=== PATIENT | female | born 1985 | race Caucasian/White ===

== ENCOUNTER 2018-02-19 01:05 | Inpatient (IN) ==
--- OUTSIDE RECORDS SUMMARY | 2018-02-19 01:14 | External Medical Summary | Continuity of Care Document ---
:1985 Author Organization [facility] Address [address] [place], [place] [address] Phone Support Name Relationship Address Phone Neftaly Jimenez spouse [address] [facility] [phone] [place] [address] Allergies, Adverse Reactions, Alerts Substance Reaction Severity Status No Known Drug Allergies Unknown Active Medications Medication Instructions Dosage Effective Dates Status Comments (start - stop) Fioricet 50 mg-300 take 1 - 2 capsule Not Available - Active mg-40 mg capsule by oral route every 4 hours as needed not to exceed 6 capsules per 24hrs TUMS (unknown - Active strength) VITAMINS take 1 tablet by - Active (unknown strength) oral route every day Tylenol 325 mg take 1 tablet by - Active tablet oral route every 4 hours as needed Problems Condition Effective Dates (start - stop) Clinical Status 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) w/o abn findings Previous Low Transverse - 24 weeks gestation of - Supervision of other high risk - pregnancies, first trimester 12 weeks gestation of - Irregular Menses Supervision of other high risk - pregnancies, first trimester 13 weeks gestation of - Supervision of other high risk - pregnancies, first trimester Previous Low Transverse - Encntr screen for infections w sexl - mode of transmiss Encounter for screening for oth - infec/parastc diseases Encounter for screening of - mother 8 weeks gestation of - Supervision of other high risk - pregnancies, second trimester Previous Low Transverse - 19 weeks gestation of - Supervision of other high risk - pregnancies, second trimester Spotting complicating , - second trimester 15 weeks gestation of - Vomiting of , unspecified - related exhaustion and - fatigue, second trimester 19 weeks gestation of - Pap Smear Screening, Cervix - Body Mass Index 35.0-35.9, Adult - Active Menorrhagia Active Procedures Procedure Date OB Visit No Charge Results Test Name Date and Time Measure Units Reference Range Abnormal Flag Comments Unknown Advance Directives Directive Yes / No Effective Date File Name Unknown Encounters Encounter Practice Location Reason(s) Diagnoses Date Provider Care Team Description For Visit Members Tyler Nazario Previous Low Mar-0 Julian Referring In Womens Transverse [place]. 700 Provider: Jeri KNOX, [id number] weeks 8 Medical [facility] Box gestation of Hunt Julian Suggs, 15[address], Dr [place] 700 [place], [facility], Medical [facility] [id number], [place], [facility] 120, [place] [id number] Aravind, tel: , [place]. [place], tel: [phone]. [id number] tel:[phone] Tyler Nazario Vomiting of Feb-0 Julian Referring In Womens , [place]. 700 Provider: Jeri KNOX, unspecifiedPregna 8 Medical [facility] Box ncy related Center Julian R, 1522, exhaustion and Dr [place] Dima Hart, fatigue, second 120, Medical [place], [id number] weeks [facility] [id number], gestation of [place], [facility] 120, [place] [id number] Aravind, tel: , . [place], tel: [phone]. [id number] tel:[phone] Tyler Nazario Supervision of Feb-0 Julian Referring In Womens Ultrasound other high risk 7- [place]. 700 Provider: Jeri KNOX, pregnancies, 8 Medical [place] PO Box second Center Julian R, 1522, trimesterPrevious Dr, [place] Dima Hrat, Low Transverse 120, Medical [place], [id number] [address] [id number], gestation of [place], [place] 120, [place] [id number] Aravind, tel: , [place]. [place], tel: [phone]. [id number] tel:[phone] Tyler Nazario Supervision of Sumit-1 Julian Referring In Womens other high risk 0-201 [place]. 700 Provider: Health PA, pregnancies, 8 Medical [place] PO Box second Center Julian R, 1522, trimesterSpotting Dr [place] Dima Hart, complicating 120, Medical [place], , second [facility] [id number], weeks [place], [place] 120, [place] gestation of [id number] Aravind, tel: , [place]. [place], tel: [phone]. [id number] tel:[phone] Tyler Nazario Supervision of Dec-2 Julian Referring In Womens other high risk 6-201 [place]. 700 Provider: Health PA, pregnancies, 7 Medical [place] PO Box first [id number] Center Julian R, 1522, weeks gestation [place] Enrique, of 120, Medical [facility] [id number], [place], [place] 120, [place] [id number] Aravind, tel: , [place]. [place], tel: [phone]. [id number] tel:[phone] Tyler Nazario Supervision of Dec-1 Julian Referring In Womens other high risk 4-201 [place]. 700 Provider: Health PA, pregnancies, 7 Medical [place] PO Box first [email or web address] Center Julian R, 1522, weeks gestation [place] Enrique, of 120, Medical [facility] [id number], [place], [place] 120, [place] [id number] Aravind, tel: , [place]. [place], tel: [phone]. [id number] tel:[phone] Tyler Nazario Supervision of Nov-1 Julian Referring In Womens other high risk 6-201 [place]. 700 Provider: Health PA, pregnancies, 7 Medical [place] PO Box first Center Julian R, 1522, trimesterPrevious [place] Enrique, Low Transverse 120, Medical [place], C-[facility]Encntr [facility] [id number], screen for [place], [facility] 120, [place] infections w sexl [id number] Aravind, tel: mode of , [place]. [place], transmissEncounte tel: [phone]. r for screening [phone] tel: for oth [phone] infec/parastc diseasesEncounter for screening of mother8 weeks gestation of Tyler Nazario Irregular Menses Julian In Womens [place]. 700 Health [place], 6 Medical PO Box Center 1522, [place] Enrique, [facility], Aravind CASTLE [id number], [place], [id number] tel: , [place]. 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 [facility] Provider: Health L[place], (routine) w/o abn 6 [facility] PO Box findingsPap Smear Center Julian R, 1522, Screening, Cervix , [facility] Dima Hart, [facility], Medical [facility] [id number], [place], [facility] 120, [place] [id number] Aravind, tel: , [place]. [place], tel: [phone]. [id number] tel:[phone] Tyler Nazario Julian In Womens [place]. 700 Jeri KNOX, 1 Medical PO Box Center 1522, [place] Enrique, [facility], Aravind CAST[place] [id number], [place], [place] [id number] tel: , [place]. tel: [phone] Family History Family Member Diagnosis Age At Onset Mother Thyroid Disorder Paternal Grandfather Cardiovascular Disease Maternal Grandmother Thyroid Disorder No family history of Pulmonary Embolism Paternal Grandfather Diabetes mellitus Paternal Grandmother Diabetes mellitus No family history of Venous Thrombosis Immunizations Vaccine Date Status Comments Influenza, injectable, completed Source: Source Unspecified quadrivalent, preservative free, 3 yrs or older Payers Payer name Insurance type Covered alliance party ID Authorization(s) BCBS Out Of State [id number] BCBS [facility] [id number] Social History Type Description Quantity Date Captured Alcohol Use Details No Caffeine Use Details Unknown Tobacco Use Status Unknown Smoking Status Never smoker Vital Signs Date / Height Weight BMI Pulse Blood Temperature Respiratory Body Head BMI Time: Rate Pressure Rate Surface Circumference percentile Area 232.70 44.6 113/70 2018 lbs 9 mm[Hg] 2:07 kg/m PM eter (2) Chief Complaint And Reason For Visit Unknown Chief Complaint And Reason For Visit Reason For Referral Reason For Referral Unknown Plan Of Care Date Type Action Status Appointment Guerline Jimenez DMS BOOKED Appointment Guerline Jimenez - [facility] - RC/S, PPTL BOOKED Future Order: Radiology Order Complete OB Ultrasound > 14 Ordered Weeks ([id number]) Date Type Problem Goal Intervention Status Start Date Unknown. History Of Present Illness Encounter Date Complaint History Of Present Illness This patient has no known history of present illness Functional Status Encounter Date Functional Assessment Cognitive Assessment Unknown Medications Administered Medication Instructions Dosage Effective Dates (start - stop) Status Comments Drug Treatment Unknown Instructions Date Instruction Additional Information [facility]og docs new ob handbook HIV and other routine tests risk factors identified by history anticipated course of care nutrition and weight gain counseling, special diet toxoplasmosis precautions (cats / raw meat) sexual activity exercise indications for ultrasound influenza vaccine environmental / work hazards travel use of any medications (including supplements, vitamins, herbs, OTC drugs) domestic violence seat belt use childbirth classes / hospital facilities hospital registration genetic testing
--- OUTSIDE RECORDS SUMMARY | 2018-02-19 01:14 | External Medical Summary | Continuity of Care Document ---
:1985 Author Organization [facility] Address [address] [place], [place] [address] Phone Support Name Relationship Address Phone Neftaly Jimenez spouse [address] 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 findings Supervision of other high risk - pregnancies, first trimester 12 weeks gestation of - Previous Low Transverse - 24 weeks gestation of - Irregular Menses Supervision [...] second trimester 15 weeks gestation of - Supervision of other high risk - pregnancies, third trimester Previous Low Transverse - Frequency of micturition - 28 weeks gestation of - Vomiting of , unspecified - related exhaustion and - fatigue, second trimester 19 weeks gestation of - Previous Low Transverse - 30 weeks gestation of - Pap Smear Screening, Cervix - Body Mass Index 35.0-35.9, Adult - Active Menorrhagia Active Procedures Procedure Date Unknown Results Test Name Date and Time Measure Units Reference Range Abnormal Flag Comments Unknown Advance Directives Directive Yes / No Effective Date File Name Unknown Encounters Encounter Practice Location Reason(s) Diagnoses Date Provider Care Team Description For Visit Members Tyler Nazario Previous Low Apr-1 Julian Referring In Womens Transverse 7-201 [place]. 700 Provider: Jeri KNOX, [id number] weeks 8 [facility] gestation of [facility] R, 152, [place] Enrique, [facility], Medical [facility] [id number], [place], [facility] 120, [place] [id number] Aravind, tel: , [place]. [place], tel: [phone]. [id number] tel:[phone] Tyler Nazario Supervision of Apr-0 Julian Referring In Womens other high risk 3-201 [place]. 700 Provider: Health LISETTE, pregnancies, 8 [facility] third [facility] R, 1522, trimesterPrevious [place] Enrique, Low Transverse 120, Medical [place], C-SectionFrequenc [facility] [id number], y of [place], [facility] 120, [place] [id number] Aravind, tel:2 weeks gestation , [place]. [place], of tel: [phone]. [id number] tel:[phone] Tyler Nazario Apr-0 Julian In Womens 2-201 [place]. 700 Health PA, 8 Medical PO Box Center 1522, [place] Enriqueta, 120, [place], Nazario, [id number], [place], [place] [id number] tel: , [place]. tel: [phone] Tyler Nazario Previous Low Mar-0 Julian Referring In Womens Transverse 7-201 [place]. 700 Provider: Health PA, [id number] weeks 8 Medical [facility] gestation of Center Julian R, 1522, , [place] Dima [place], 120, Medical [place], Nazario, [place] [id number], [place], [place] 120, [place] [id number] Aravind, tel: , [place]. [place], tel: [phone]. [id number] tel:[phone] Tyler Nazario Vomiting of Feb-0 Julian Referring In Womens , 7-201 [place]. 700 Provider: Health LISETTE, unspecifiedPregna 8 Medical [facility] Box ncy related Center Julian R, 1522, exhaustion and , [place] 700 [place], fatigue, second 120, Medical [place], [id number] [id number], gestation of [place], [facility] 120, [place] [id number] Aravind, tel: , [place]. [place] tel: [phone]. [id number] tel:[phone] Tyler Nazario Supervision of Feb-0 Julian Referring In Womens Ultrasound other high risk 7-201 [place]. 700 Provider: Health PA, pregnancies, 8 Medical [facility] second Center Julian R, 1522, trimesterPrevious , [place] 700 [place], Low Transverse 120, Medical [place], [id number] [id number], gestation of [place], [facility] 120, [place] [id number] Aravind, tel: , [place]. [place] tel: [phone]. [id number] tel:[phone] Tyler Nazario Supervision of Sumit-1 Julian Referring In Womens other high risk 0-201 [place]. 700 Provider: Health PA, pregnancies, 8 Medical [place] PO Box second Center Julian R, 1522, trimesterSpotting Dr [place] Dmia Estrada[place], complicating 120, Medical [place], , second [facility] [id number], [id number] weeks [place], [facility] 120, [place] gestation of [id number] Aravind, tel: , [place]. [place], tel: [phone]. [id number] tel:[phone] Tyler Nazario Supervision of Dec-2 Julian Referring In Womens other high risk 6-201 [place]. 700 Provider: Health PA, pregnancies, 7 Medical [place] PO Box first Center Julian R, 1522, weeks gestation [place] Enrique, of 120, Medical [facility] [id number], [place], [place] 120, [place] [id number] Aravind, tel: , [place]. [place], tel: [phone]. [id number] tel:[phone] Tyler Nazario Supervision of Dec-1 Julian Referring In Womens other high risk 4-201 [place]. 700 Provider: Health PA, pregnancies, 7 Medical [place] PO Box first [id number] Center Julian R, 1522, weeks gestation [place] Enrique, of 120, Medical [facility] [id number], [place], [facility] 120, [place] [id number] Aravind, tel: , [place]. [place], tel: [phone]. [id number] tel:[phone] Tyler Nazario Supervision of Nov- Julian Referring In Womens other high risk 6-201 [place]. 700 Provider: Health PA, pregnancies, 7 Medical [facility] Box first Center Julian R, 1522, trimesterPrevious [place] Enrique [place], Low Transverse 120, Medical [place], C-SectionEncntr Aravind [place] [id number], screen for [place], [place] 120, [place] infections w sexl [id number] Aravind, tel: mode of , [place]. [place] transmissEncounte tel: [phone]. r for screening [phone] tel: for oth [phone] infec/parastc diseasesEncounter for screening of mother8 weeks gestation of Tyler Nazario Irregular Menses Julian In Womens [place]. 700 Health LISETTE, 6 Medical PO Box Center 1522, [place] Enrique, [facility], [place], Aravind, [id number], [place], [id number] tel: , [place]. 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 700 Provider: Jeri KNOX, (routine) w/o abn 6 [facility] PO Box findingsPap Smear Center Julian R, 1522, Screening, Cervix , [place] [facility] [place], [facility], [facility], Aravind, [place] [id number], [place], [place] [address], [id number] Aravind, tel: , . [place], tel: [phone]. [id number] tel:[phone] Tyler Nazario Julian In Womens [place]. 700 Health L[place], 1 Medical PO Box Center 1522, [place] Enrique, [facility], [place], Aravind, [id number], [place], [place] [id number] tel: , [place]. tel: [phone] Family History Family Member Diagnosis Age At Onset Mother Thyroid Disorder Paternal Grandfather Cardiovascular Disease Maternal Grandmother Thyroid Disorder No family history of Pulmonary Embolism Paternal Grandfather Diabetes mellitus Paternal Grandmother Diabetes mellitus No family history of Venous Thrombosis Immunizations Vaccine Date Status Comments Influenza, injectable, completed Source: Source Unspecified quadrivalent, preservative free, 3 yrs or older Payers Payer name Insurance type Covered green party ID Authorization(s) BC Out Of State [id number] [facility] [id number] Social History Type Description Quantity Date Captured Unknown Vital Signs Date / Height Weight BMI Pulse Blood Temperature Respiratory Body Head BMI Time: Rate Pressure Rate Surface Circumference percentile Area Unknown Chief Complaint And Reason For Visit Unknown Chief Complaint And Reason For Visit Reason For Referral Reason For Referral Unknown Plan Of Care Date Type Action Status Appointment Guerline Jimenez BOOKED Appointment Guerline Jimenez [place] [facility] [place]PT[place] Future Order: Radiology Order Complete OB Ultrasound > 14 Ordered Weeks ([id number]) Date Type Problem Goal Intervention Status Start [...]
--- OUTSIDE RECORDS SUMMARY | 2018-02-19 01:14 | External Medical Summary | Continuity of Care Document ---
:1985 Author Organization [facility] Address [address] [place], [place] [address] Phone Support Name Relationship Address Phone Neftaly Jimenez spouse [address] [facility] [phone] [place] [address] Allergies, Adverse Reactions, Alerts Substance Reaction Severity Status No Known Drug Allergies Unknown Active Medications Medication Instructions Dosage Effective Dates Status Comments (start - stop) Fioricet 50 take 1 - 2 capsule Not Available - Active mg-300 mg-40 mg by oral route capsule every 4 hours as needed not to exceed 6 capsules per 24hrs TUMS (unknown - Active strength) VITAMINS take 1 tablet by - Active (unknown oral route every strength) day Tylenol 325 mg take 1 tablet by - Active tablet oral route every 4 hours as needed Keflex 500 mg take 1 capsule by 500 MG - No Longer capsule ORAL route 4 times Active every day Problems Condition Effective Dates (start - stop) Clinical Status 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 700 Provider: Jeri KNOX, 8 [facility] Julian Suggs, 1522, Dr [place] Dima Hart, 120, Medical [facility] [id number], [place], [facility] 120, [id number] Aravind, tel: , [facility], tel: [phone]. [id number] tel:[phone] Tyler Nazario Previous Low Mar-0 Julian Referring In Womens Transverse - [place]. 700 Provider: Jeri KNOX, [id number] weeks 8 [facility] gestation of Center Julian Suggs, 1522, Dr [place] Dima Hart, 120, Medical [facility] [id number], [place], [facility] 120, [id number] Aravind, tel: , [facility], tel: [phone]. [id number] tel:[phone] Tyler Nazario Vomiting of Feb-0 Julian Referring In Womens , 7- [place]. 700 Provider: Jrei KNOX, unspecifiedPregna 8 [facility] ncy related Center Julian R, 1522, exhaustion and Dr, [place] Dima Hart, fatigue, second 120, Medical [place], [id number] weeks [facility] [id number], gestation of [place], [place] 120, [place] [id number] Aravind, tel: , [place]. [place], tel: [phone]. [id number] tel:[phone] Tyler Nazario Supervision of Feb-0 Julian Referring In Womens Ultrasound other high risk 7-201 [place]. 700 Provider: Health PA, pregnancies, 8 Medical [place] PO Box second Center Julian R, 1522, trimesterPrevious , [place] Dima Hart, Low Transverse 120, Medical [place], C-[id number] weeks [facility] [id number], gestation of [place], [place] 120, [place] [id number] Aravind, tel: , [place]. [place], tel: [phone]. [id number] tel:[phone] Tyler Nazario Supervision of Sumit- Julian Referring In Womens other high risk 0-201 [place]. 700 Provider: Health PA, pregnancies, 8 Medical [place] PO Box second Center Julian R, 1522, trimesterSpotting , [place] Dima Hart, complicating 120, Medical [place], , second [facility] [id number], [id number] weeks [place], [place] 120, [place] gestation of [id number] Nazario, tel: , [place]. [place], tel: [phone]. [id number] tel:[phone] Tyler Nazario Supervision of Dec-2 Julian Referring In Womens other high risk 6-201 [place]. 700 Provider: Health PA, pregnancies, 7 Medical [place] PO Box first Center Julian R, 1522, weeks gestation [place] Enrique, of 120, Medical [place], [facility] [id number], [place], [place] 120, [place] [id number] Aravind, tel: , [place]. [place], tel: [phone]. [id number] tel:[phone] Tyler Nazario Supervision of Dec-1 Julian Referring In Womens other high risk 4-201 [place]. 700 Provider: Health PA, pregnancies, 7 Medical [place] PO Box first [email or web address] Center Julian R, 1522, weeks gestation [place] Enrique, of 120, Medical [facility] [id number], [place], [place] 120, [place] [id number] Aravind, tel: , [place]. [place], tel:[phone]. [id number] tel:[phone] Tyler Nazario Supervision of Julian Referring In Womens other high risk - [place]. 700 Provider: Jeri KNOX, pregnancies, 7 [facility] PO Box first Center Julian R, 1522, trimesterPrevious , [place] Hart, Low Transverse 120, Medical [place], [facility]Encntr [facility] , screen for [place], [place] 120, [place] infections w sexl [id number] Aravind, tel: mode of , [place]. [place] transmissEncounte tel: [phone]. r for screening [phone] tel: for oth [phone] infec/parastc diseasesEncounter for screening of mother8 weeks gestation of Tyler Nazario Irregular Menses Julian In Womens - [place]. 700 eJri KNOX, 6 Medical PO Box Center 1522, [place] Enrique, 120, Aravind [place]ST[place] [id number], [place], [id number] tel: , [place]. tel: [phone] Tyler Nazario Encntr for ob/gyn physician Julian Referring In Womens exam (general) [place]. 700 Provider: Jeri KNOX, (routine) w/o abn 6 [facility] PO Box findingsPap Smear Center Julian R, 1522, Screening, Cervix [place] Enrique, 120, Medical [facility] [id number], [place], [facility] 120, [place] [id number] Aravind, tel: , [place]. [place], tel: [phone]. [id number] tel:[phone] Tyler Nazario Julian In Womens -201 [place]. 700 Health LISETTE, 1 Medical PO Box Center 1522, [place] Enrique, 120, Aravind [place] [id number], [place], [place] [id number] tel:[phone] , [place]. [id number] tel: [phone] Family History Family Member Diagnosis Age At [...] Insurance type Covered green party ID Authorization(s) [facility] Out Of State [id number] [facility] [id number] Social History Type Description Quantity Date Captured [...] Complete OB Ultrasound > 14 Ordered Weeks ([id number]) Date Type Problem Goal Intervention Status Start [...]
--- OUTSIDE RECORDS SUMMARY | 2018-02-19 01:14 | External Medical Summary | Continuity of Care Document ---
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) w/o 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 findings Supervision of other high risk - pregnancies, first trimester Previous Low Transverse - Encntr screen for infections w sexl - mode of transmiss Encounter for screening for oth - infec/parastc diseases Encounter for screening of - mother 8 weeks gestation of - Irregular Menses Pap Smear Screening, Cervix - Body Mass Index 35.0-35.9, Adult - Active Menorrhagia Active Procedures Procedure Date Initial OB Visit No Charge - 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 Infct antign, chlamydia trac, ampl Urine Culture OB Panel With An HIV Neisseria Gonorrhoeae, Amplification Venpnctr fngr/heel/ear stick routne Results Test Name Date and Time Measure Units Reference Range Abnormal Flag Comments Panel Description: OBSTETRIC PANEL WHITE BLOOD CELL 6.9 Thousand/uL 3.8-10.8 N COUNT 09:26:00 RED BLOOD CELL 4.38 Million/uL 3.80-5.10 N COUNT 09:26:00 HEMOGLOBIN 13.8 g/dL 11.7-15.5 N 09:26:00 HEMATOCRIT 40.6 % 35.0-45.0 N 09:26:00 MCV 92.7 fL 80.0-100.0 N 09:26:00 MCH 31.5 pg 27.0-33.0 N 09:26:00 MCHC 34.0 g/dL 32.0-36.0 N 09:26:00 RDW 12.6 % 11.0-15.0 N 09:26:00 PLATELET COUNT 288 Thousand/uL 140-400 N 09:26:00 MPV 11.9 fL 7.5-12.5 N 09:26:00 ABSOLUTE 4871 cells/uL 4798-6680 N NEUTROPHILS 09:26:00 ABSOLUTE 1553 cells/uL 850-3900 N LYMPHOCYTES 09:26:00 ABSOLUTE 428 cells/uL 200-950 N MONOCYTES 09:26:00 ABSOLUTE 41 cells/uL 15-500 N EOSINOPHILS 09:26:00 ABSOLUTE 7 cells/uL 0-200 N BASOPHILS 09:26:00 NEUTROPHILS 70.6 % N 09:26:00 LYMPHOCYTES 22.5 % N 09:26:00 MONOCYTES 6.2 % N 09:26:00 EOSINOPHILS 0.6 % N 09:26:00 BASOPHILS 0.1 % N 09:26:00 ANTIBODY SCREEN, NO ANTIBODIES N RBC W/REFL ID, 09:26:00 DETECTED Reference range TITER AND AG No antibodies detected This assay is a screening test for the detection of red blood cell antibodies. The test is not to be used for pretransfusion screening or for the medical management of an alloimmunized . ABO GROUP O 09:26:00 RH TYPE RH(D) 09:26:00 POSITIVE RPR (DX) W/REFL NON-REACTIVE NON-REACTIV N TITER AND 09:26:00 E CONFIRMATORY TESTING HEPATITIS B NON-REACTIVE NON-REACTIV N SURFACE ANTIGEN 09:26:00 E RUBELLA ANTIBODY 5.95 index N Index (IGG) 09:26:00 Interpretation ----- <0.90 Not consistent with Immunity 0.90-0.99 Equivocal > or=1.00 Consistent with Immunity The presence of rubella IgG antibody suggests immunization or past or current infection withrubella virus[place] [address]Telbxld r: ODALYS PENNY DO,MPH Panel Description: HIV 1/2 ANTIGEN/ANTIBODY,FOURTH GENERATION W/RFL HIV NON-REACTIVE NON-REACTIVE N HIV-1 antigen and HIV-1/HIV- 2 antibodies were AG/AB, 09:26:00 notdetected. There is no laboratory evidence of 4TH GEN HIVinfection. PLEASE NOTE: This information has been disclosed toyou from records whose confidentiality may beprotected by state law. If your state requires suchprotection, then the state law prohibits you frommaking any further disclosure of the informationwithout the specific written consent of the personto whom it pertains, or as otherwise permitted by law.A general authorization for the release of medical orother information is NOT sufficient for this purpose. For additional information please refer tohttp://education.Follicum/faq/JTZ059(This link is being provided for informational/educational purposes only.) The performance of this assay has not been clinicallyvalidated in patients less than 2 years old. REPORT COMMENT:FASTING:[place] [address]Bteipzrb: ODALYS PENNY DO,MPH Panel Description: Bacteria identified in Urine by Culture CULTURE, URINE, SEE NOTE CULTURE, URINE, ROUTINE MICRO ROUTINE 09:27:00 NUMBER: [id number] TEST STATUS: FINAL SPECIMEN SOURCE: URINE SPECIMEN QUALITY: ADEQUATE RESULT: No GrowthREPORT COMMENT:RFASTING:[place] [address]Cedpafgw: ODALYS PENNY DO,MPH Panel Description: CHLAMYDIA/N. GONORRHOEAE RNA, TMA CHLAMYDIA NOT DETECTED NOT DETECTED N TRACHOMATIS RNA, 09:27:00 TMA NEISSERIA NOT DETECTED NOT DETECTED N GONORRHOEAE RNA, 09:27:00 TMA [id number] SEE NOTE This test was 09:27:00 performed using the APTIMA COMBO2 Assay([employer] The analytical performance characteristics of this assay, when used to test SurePath specimens havebeen determined by [employer]. REPORT COMMENT:FASTING:UNKNO WNTest performed at [facility] [address] [place] [address]Kpvnxswq: ODALYS PENNY DO,MPH Panel Description: Pap Smear With HPV Reflex If ASCUS Document Pap Smear 08:45:00 See scanned report Advance Directives Directive Yes / No Effective Date File Name Unknown Encounters Encounter Practice Location Reason(s) Diagnoses Date Provider Care Team Description For Visit Members Tyler Nazario Supervision of Julian Referring In Womens other high risk [place]. [facility] Provider: Jeri KNOX, pregnancies, first 7 Medical [place] PO Box trimesterPrevious Center Julian Suggs, 1522, Low Transverse [place] Enrique, C-SectionEncntr [facility], [facility], screen for [address] [id number], infections w sexl [place], [facility] 120, [place] mode of [id number] Aravind, tel: [facility] , . [place], for screening for tel: [phone]. [facility] infec/parastc [id number] tel: diseasesEncounter [phone] for screening of mother8 weeks gestation of Associates Aravind Irregular Menses Julian In Womens [place] [address] Jeri KNOX, 6 Medical PO Box Center [address], [place] Enrique, [facility], [place], Aravind, [id number], [place], [place] [id number] tel: , [place]. tel: [phone] Tyler Nazario Encserar for terrazzo supervisor exam Julian Referring In Womens (general) (routine) [place]. 700 Provider: Health [place], w/o abn findingsPap 6 [facility] PO Box Smear Screening, Center Julian R, 1522, Cervix , [place], 120, [facility] [id number], [place], [place] [address], [place] [id number] Aravind, tel: , [place]. [place], tel: [phone]. [phone] tel:[phone] Tyler Nazario Julian In Womens [place]. 700 Health [place], 1 Medical PO Box Center 1522, , [place] Hart, 120, Aravind [place], [id number], [place], [id number] tel: , [place]. tel: [phone] Family History Family Member Diagnosis Age At Onset Mother Thyroid Disorder Paternal Grandfather Cardiovascular Disease Maternal Grandmother Thyroid Disorder No family history of Pulmonary Embolism Paternal Grandfather Diabetes mellitus Paternal Grandmother Diabetes mellitus No family history of Venous Thrombosis Immunizations Vaccine Date Status Comments Unknown Payers Payer name Insurance type Covered green party ID Authorization(s) [facility] [id number] Social History Type Description Quantity Date Captured Alcohol Use Details No Caffeine Use Details soda 8 oz per day Tobacco Use Status Never smoked tobacco Smoking Status Never smoker Vital Signs Date / Height Weight BMI Pulse Blood Temperature Respiratory Body Head BMI Time: Rate Pressure Rate Surface Circumference percentile Area 229.50 44.0 / lbs 8 mm[Hg] 9:21 kg/m AM eter (2) Chief Complaint And Reason For Visit Unknown Chief Complaint And Reason For Visit Reason For Referral Reason For Referral Unknown Plan Of Care Date Type Action Status Appointment Guerline Jimenez BOOKED Date Type Problem Goal Intervention Status Start [...]
--- OUTSIDE RECORDS SUMMARY | 2018-02-19 01:15 | External Medical Summary | Continuity of Care Document ---
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) w/o abn findings Supervision of other high risk - pregnancies, first trimester 13 weeks gestation of - Supervision of other high risk - pregnancies, first trimester 12 weeks gestation of - Supervision of other high risk - pregnancies, second trimester Spotting complicating , - second trimester 15 weeks gestation of - Irregular Menses Supervision of other high risk - pregnancies, first trimester Previous Low Transverse - Encntr screen for infections w sexl - mode of transmiss Encounter for screening for oth - infec/parastc diseases Encounter for screening of - mother 8 weeks gestation of - Pap Smear Screening, Cervix - Body Mass Index 35.0-35.9, Adult - Active Menorrhagia Active Procedures Procedure Date OB Visit No Charge OB Office/outpt visit, kira Salmon Results Test Name Date and Time Measure Units Reference Range Abnormal Flag Comments Unknown Advance Directives Directive Yes / No Effective Date File Name Unknown Encounters Encounter Practice Location Reason(s) Diagnoses Date Provider Care Team Description For Visit Members Tyler Nazario Supervision of Julian Referring In Womens other high risk 0-201 [place]. 700 Provider: Health PA, pregnancies, second 8 Medical [place] PO Box trimesterSpotting Center Julian Suggs, 1522, complicating [place] Enrique, , second 120, Medical [place], [id number] [facility] [id number], gestation of [place], [place] 120, [place] [id number] Aravind, tel: , [place]. [place], tel: [phone]. [phone] tel:[phone] OB Tyler Nazraio Supervision of Julian Referring Office/outpt In Womens other high risk 6-201 [place]. 700 Provider: visit, Est, Health PA, pregnancies, first 7 Medical [place] low PO Box [id number] weeks [place] Julian Suggs, 1522, gestation of [place] Enrique, 120, Medical [facility] [id number], [place], [place] 120, [place] [id number] Aravind, tel: , [place]. [place], tel: [phone]. [id number] tel:[phone] Tyler Nazario Supervision of Julian Referring In Womens other high risk 4-201 [place]. 700 Provider: Health PA, pregnancies, first 7 Medical [place] PO Box [id number] weeks [place] Julian Suggs, 1522, gestation of [place] Enrique, 120, Medical [facility] [id number], [place], [place] 120, [place] [id number] Aravind, tel: , . [place], tel: [phone]. [id number] tel:[phone] Tyler Nazario Supervision of Julian Referring In Womens other high risk [place]. 700 Provider: Health LISETTE, pregnancies, first 7 [facility] PO Box trimesterPrevious Center Julian Suggs, 1522, Low Transverse , [place] D[place], C-SectionEncntr 120, [facility], screen for Nazario, [place] [id number], infections w sexl [place], [facility] 120, [place] mode of [id number] Aravind, tel: transmissEncgreater el monte community hospitaler , . [place], for screening for tel: [phone]. ot infec/parastc [id number] tel: diseasesEncounter [phone] for screening of mother8 weeks gestation of Tyler Nazario Irregular Menses Julian In Womens [place]. 700 Jeri KNOX, 6 Medical PO Box Center [place], [place] Enrique, [facility], [place] [id number], [place], [place] [id number] tel: , [place]. tel: [phone] Tyler Nazario Encdaniel for hospice registered nurse exam Julian Referring In Womens (general) (routine) [place]. 700 Provider: Health LISETTE, w/o abn findingsPap 6 [facility] PO Box Smear Screening, Center Julian Suggs 1522, Cervix , [place] Dima [place], [facility], [facility] [id number], [place], [place] [address], [place] [id number] Aravind, tel: , . [place], tel: [phone]. [phone] tel:[phone] Tyler Nazario Julian In Womens [place]. 700 Health [place], 1 Medical PO Box Center [place], [place] Enrique, [facility], [place]Aravind [id number], [place], [place] [id number] tel: , [place]. tel: [phone] Family History Family Member Diagnosis Age At Onset Mother Thyroid Disorder Paternal Grandfather Cardiovascular Disease Maternal Grandmother Thyroid Disorder No family history of Pulmonary Embolism Paternal Grandfather Diabetes mellitus Paternal Grandmother Diabetes mellitus No family history of Venous Thrombosis Immunizations Vaccine Date Status Comments Influenza, injectable, completed Source: Source Unspecified quadrivalent, preservative free, 3 yrs or older Payers Payer name Insurance type Covered libertarian ID Authorization(s) [employer] [facility] [id number] BCBS Out Of State [id number] Social History Type Description Quantity Date Captured [...] Appointment Guerline Jimenez BOOKED Appointment Guerline Jimenez BOOKED Date Type Problem [...]
--- OUTSIDE RECORDS SUMMARY | 2018-02-19 01:15 | External Medical Summary | Continuity of Care Document ---
:1985 Author Organization [facility] Address [address] [place], [place] [phone] Phone Support Name Relationship Address Phone Neftaly Jimenez spouse [address] [facility] [phone] [place] [address] Allergies, Adverse Reactions, Alerts Substance Reaction Severity Status No Known Drug Allergies Unknown Active Medications Medication Instructions Dosage Effective Dates Status Comments (start - stop) TUMS (unknown - Active strength) VITAMINS take 1 tablet by oral - Active (unknown strength) route every day Tylenol 325 mg tablet take 1 tablet by oral - Active route every 4 hours as needed Problems Condition Effective Dates (start - stop) Clinical Status 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 700 Provider: Health PA, pregnancies, first 7 Medical [place] PO Box [id number] weeks Center Julian Suggs, 1522, gestation of [place] Enrique, 120, Medical [place], Aravind, [place] [id number], [place], [facility] 120, [place] [id number] Aravind, tel: , [place]. [place], tel: [phone]. [phone] tel:[phone] Tyler Nazario Julian In Womens [place]. 700 Health [place], 7 Medical PO Box Center 1522, [place] Enrique, 120, [place], Aravn[place], [id number], [place], [place] [id number] tel: , [place]. tel: [phone] Tyler Nazario Supervision of Julian Referring In Womens other high risk [place]. [place] Provider: Jeri KNOX, pregnancies, first 7 Medical [place] PO Box trimesterPrevious Center Julian R, 1522, Low Transverse [place] Enrique, C-SectionEncntr 120, [facility], screen for Aravind [place] [id number], infections w sexl [place], [place] 120, [place] mode of [id number] Aravind, tel: transmissEncounter , . [place], for screening for tel: [phone]. [facility] infec/parastc [id number] tel: diseasesEncounter [phone] for screening of mother8 weeks gestation of Associates Aravind Irregular Menses Julian In Womens [place]. 700 Jeri KNOX, 6 Medical PO Box Center 1522, [place] Enrique, 120, [place], Aravind, [id number], [place], [place] [id number] tel: , [place]. tel: [phone] Tyler Nazario Encntr for rn gyn exam Julian Referring In Womens (general) (routine) [place]. [place] Provider: Jeri KNOX, w/o abn findingsPap 6 [facility] PO Box Smear Screening, Center Julian R, 1522, Cervix [place] En[place], 120, Medical [place], Aravind, [place] [id number], [place], [place] 120, [place] [id number] Aravind, tel: , [place]. [place], tel: [phone]. [id number] tel:[phone] Tyler Nazario Julian In Womens 3-[address], 1 Medical Box Center 1522, [place] Enrique, 120, [place], Nazario, [id number], [place], [place] [id number] tel: , [place]. tel: [phone] Family History Family Member Diagnosis Age At [...] name Insurance type Covered libertarian ID Authorization(s) [facility] [id number] Social History Type Description Quantity Date Captured [...]
--- OUTSIDE RECORDS SUMMARY | 2018-02-19 01:15 | External Medical Summary | Continuity of Care Document ---
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 700 Provider: Jeri KNOX, [id number] weeks 8 [facility] gestation of [place] Julian , 1522, [place] Enrique, [facility], [facility] [id number] [place] [address] [id number] Aravind, tel: , . [place], [address] tel: [phone]. [id number] tel:[phone] Tyler Nazario Apr-0 Julian In Womens 5-201 [place]. 700 Jeri KNOX, 8 [facility] Box [place] 1522, [place] Enrique, [facility], U[place]ravind [id number], [place], [id number] tel: , . [phone] tel: [phone] Tyler Nazario Supervision of Apr-0 Julian Referring In Womens other high risk 3-201 [place]. 700 Provider: Jeri KNOX, pregnancies, 8 [facility] third [place] Julian R, 1522, trimesterPrevious [place] En[place]queta, Low Transverse 120, Medical [place], C-SectionFrequenc [address] Naz[address] Dr [id number], y of [place], [place] 120, [place] [id number] Aravind, tel:+[phone] weeks gestation , [place]. [place], of tel: [phone]. [id number] tel:[phone] Tyler Nazario Previous Low Mar-0 Julian Referring In Womens Transverse 7-201 [place]. 700 Provider: Health LIS[place], [id number] weeks 8 Medical [place] PO Box gestation of Center Julian R, 1522, , [place] D[place] Estr[place], 120, Medical [place], [facility] [id number], [place], [place] 120, [place] [id number] Aravind, tel: , [place]. [place], tel: [phone]. [id number] tel:[phone] Tyler Nazario Vomiting of Feb-0 Julian Referring In Womens , 7-201 [place]. 700 Provider: Health LISETTE, unspecifiedPregna 8 Medical [place] PO Box ncy related Center Julian R, 1522, exhaustion and , [place] 700 [place], fatigue, second 120, Medical [place], [id number] [id number], gestation of [place], [place] 120, [place] [id number] Aravind, tel: , [place]. [place] tel: [phone]. [id number] tel:[phone] Tyler Nazario Supervision of Feb-0 Julian Referring In Womens Ultrasound other high risk 7-201 [place]. 700 Provider: Health PA, pregnancies, 8 Medical [facility] Box second Center Julian R, 1522, trimesterPrevious , [place] Dima Hart, Low Transverse 120, Medical [place], [id number] [address] [id number], gestation of [place], [place] 120, [place] [id number] Aravind, tel: , [place]. [place] tel: [phone]. [id number] tel:[phone] Tyler Nazario Supervision of Oct-1 Julian Referring In Womens other high risk 0-201 [place]. 700 Provider: Health PA, pregnancies, 8 Medical [place] PO Box second Center Julian R, 1522, trimesterSpotting Dr [place] D[place] EstradaElem, complicating 120, Medical [place], , second [facility] [id number], [id number] weeks [place], [facility] 120, [place] gestation of [id number] Aravind, tel: , [place]. [place], tel: [phone]. [phone] tel:[phone] Tyler Nazario Supervision of Dec-2 Julian Referring In Womens other high risk 6-201 [place]. 700 Provider: Health PA, pregnancies, 7 Medical [place] PO Box first [id number] Center Julian R, 1522, weeks gestation [place] Enrique, of 120, Medical [facility] [id number], [place], [place] 120, [place] [id number] Aravind, tel: , [place]. [place], tel: [phone]. [id number] tel:[phone] Tyler Nazario Supervision of Dec-1 Julian Referring In Womens other high risk 4-201 [place]. 700 Provider: Health PA, pregnancies, 7 Medical [place] PO Box first [id number] Center Julian R, 1522, weeks gestation [place] Enrique, of 120, Medical [facility]ind [facility] [id number], [place], [facility] 120, [place] [id number] Aravind, tel: , [place]. [place], tel: [phone]. [id number] tel:[phone] Tyler Nazario Supervision of Nov- Julian Referring In Womens other high risk 6-201 [place]. 700 Provider: Health PA, pregnancies, 7 Medical [facility] Box first Center Julian R, 1522, trimesterPrevious [place] Enrique [place], Low Transverse 120, Medical [place], C-SectionEncntr Aravind [place] [id number], screen for [place], [place] 120, [place] infections w sexl [id number] Aravind, tel: mode of , [place]. [place] transmissEncounte tel: [phone]. r for screening [id number] tel: for oth [phone] infec/parastc diseasesEncounter for screening of mother8 weeks gestation of Tyler Nazario Irregular Menses Julian In Womens [place]. 700 Health L[place], 6 Medical PO Box Center 1522, [place] Enrique, [facility], [place], Aravind, [id number], [place], [id number] tel: , [place]. 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 700 Provider: Jeri KNOX, (routine) w/o abn 6 [facility] PO Box findingsPap Smear Center Julian R, 1522, Screening, Cervix , [facility] [place], [facility], [facility], Aravind, [place] [id number], [place], [place] [address], [id number] Aravind, tel: , . [place], tel: [phone]. [id number] tel:[phone] Tyler Nazario Julian In Womens [place]. 700 Health L[place], 1 Medical PO Box Center 1522, [place] Enrique, [facility], [place], Aravind, [id number], [place], [place] [id number] tel: , [place]. tel: [phone] Family History Family Member Diagnosis Age At Onset Mother Thyroid Disorder Paternal Grandfather Cardiovascular Disease Maternal Grandmother Thyroid Disorder No family history of Pulmonary Embolism Paternal Grandfather Diabetes mellitus Paternal Grandmother Diabetes mellitus No family history of Venous Thrombosis Immunizations Vaccine Date Status Comments Influenza, injectable, completed Source: Source Unspecified quadrivalent, preservative free, 3 yrs or older Payers Payer name Insurance type Covered constitution party ID Authorization(s) [employer] Out Of State [id number] [facility] [id number] Social History Type Description Quantity Date Captured [...] Guerline Jimenez BOOKED Appointment Guerline Jimenez - [facility] - RC/S, PPTL BOOKED Future Order: Radiology Order Complete OB Ultrasound > 14 Ordered Weeks ([id number]) Date Type Problem Goal Intervention Status Start [...]
--- OUTSIDE RECORDS SUMMARY | 2018-02-19 01:15 | External Medical Summary | Continuity of Care Document ---
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 Supervision of other high risk - pregnancies, third trimester Previous Low Transverse - Frequency of micturition - 28 weeks gestation of - Supervision of other [...] Procedures Procedure Date OB Visit No Charge Automated hemogram (CBC) Glucose test Venpnctr fngr/heel/ear stick routne Cult, bactr, mikey colonycnt, urine Results Test Name Date and Time Measure Units Reference Range Abnormal Flag Comments Panel Description: Bacteria identified in Urine by Culture Urine Culture, Routine 09:04:00 Final report Result 1 09:04:00 No growth Panel Description: CBC With Differential/Platelet WBC 09:17:00 7.2 x10E3/uL 3.4-10.8 RBC 09:17:00 3.63 x10E6/uL 3.77-5.28 L Hemoglobin 09:17:00 11.6 g/dL 11.1-15.9 Hematocrit 09:17:00 34.6 % 34.0-46.6 MCV 09:17:00 95 fL 79-97 MCH 09:17:00 32.0 pg 26.6-33.0 MCHC 09:17:00 33.5 g/dL 31.5-35.7 RDW 09:17:00 13.7 % 12.3-15.4 Platelets 09:17:00 241 x10E3/uL 150-379 Neutrophils 09:17:00 76 % Not Estab. Lymphs 09:17:00 18 % Not Estab. Monocytes 09:17:00 5 % Not Estab. Eos 09:17:00 1 % Not Estab. Basos 09:17:00 0 % Not Estab. Immature Cells 09:17:00 Neutrophils (Absolute) 09:17:00 5.4 x10E3/uL 1.4-7.0 Lymphs (Absolute) 09:17:00 1.3 x10E3/uL 0.7-3.1 Monocytes(Absolute) 09:17:00 0.4 x10E3/uL 0.1-0.9 Eos (Absolute) 09:17:00 0.1 x10E3/uL 0.0-0.4 Baso (Absolute) 09:17:00 0.0 x10E3/uL 0.0-0.2 Immature Granulocytes 09:17:00 0 % Not Estab. Immature Grans (Abs) 09:17:00 0.0 x10E3/uL 0.0-0.1 NRBC 09:17:00 Hematology Comments: 09:17:00 Panel Description: Glucose [Mass/volume] in Serum or Plasma --1 hour post 50 g glucose PO Gestational Diabetes Screen 09:17:00 131 mg/dL 65-135 Advance Directives Directive Yes / No Effective Date File Name Unknown Encounters Encounter Practice Location Reason(s) Diagnoses Date Provider Care Team Description For Visit Members Associates Aravind Previous Low Apr- Julian Referring In Womens Transverse 7-201 [place]. 700 Provider: [facility]ly [facility], [id number] weeks 8 Medical [place] PO Box gestation of [place] Julian Suggs, 1522, , [place] 700 [place], [facility], [facility] [id number], [place], [place] 120, [place] [id number] Aravind, tel: , [place]. [place] tel: [phone]. [phone] tel:[phone] Tyler Nazario Supervision of Apr-0 Julian Referring In Womens other high risk 3-201 [place]. 700 Provider: Health PA, pregnancies, 8 Medical [facility] Box third Center Julian R, 1522, trimesterPrevious [place] Enrique, Low Transverse 120, Medical [place], C-SectionFrequenc Aravind [place] [id number], y of [place], [place] 120, [place] [id number] Aravind, tel:3162 weeks gestation , [place]. [place], of tel: [phone]. [id number] tel:[phone] Tyler Nazario Previous Low Mar-0 Julian Referring In Womens Transverse 7- [place]. 700 Provider: Health [place], [id number] weeks 8 Medical [facility] gestation of Center Julian R, 1522, [place] Enrique, 120, Medical [place], [facility] [id number], [place], [place] 120, [place] [id number] Aravind, tel: , [place]. [place] tel: [phone]. [id number] tel:[phone] Tyler Nazario Vomiting of Feb-0 Julian Referring In Womens , 7- [place]. 700 Provider: Health PA, unspecifiedPregna 8 Medical [facility] Box ncy related Center Julian R, 1522, exhaustion and [place] Enrique, fatigue, second 120, Medical [place], [id number] weeks [facility] [id number], gestation of [place], [place] 120, [place] [id number] Aravind, tel: , [place]. [place] tel: [phone]. [phone] tel:[phone] Tyler Nazario Supervision of Feb-0 Julian Referring In Womens Ultrasound other high risk 7-201 [place]. 700 Provider: Health PA, pregnancies, 8 Medical [facility] Box second Center Julian R, 1522, trimesterPrevious [place] Enrique, Low Transverse 120, Medical [place], [id number] [address] [id number], gestation of [place], [place] 120, [place] [id number] Aravind, tel: , [place]. [place], tel: [phone]. [id number] tel:[phone] Tyler Nazario Supervision of Sumit-1 Julian Referring In Womens other high risk 0-201 [place]. 700 Provider: Health PA, pregnancies, 8 Medical [place] PO Box second Center Julian R, 1522, trimesterSpotting [place] Enrique, complicating 120, Medical [place], , second [facility] [id number], [id number] weeks [place], [place] 120, [place] gestation of [id number] Aravind, tel: , [place]. [place], tel: [phone]. [id number] tel:[phone] Tyler Nazario Supervision of Dec-2 Julian Referring In Womens other high risk 6-201 [place]. 700 Provider: Health PA, pregnancies, 7 Medical [place] PO Box first [id number] Center Julian R, 1522, weeks gestation [place] Enrique, of 120, Medical [facility] [id number], [place], [place] 120, [place] [id number] Aravind, tel: , [place]. [place], tel: [phone]. [id number] tel:[phone] Tyler Nazario Supervision of Dec-1 Julian Referring In Womens other high risk 4-201 [place]. 700 Provider: Health PA, pregnancies, 7 Medical [place] PO Box first [id number] Center Julian R, 1522, weeks gestation [place] Enrique, of 120, Medical [facility] [id number], [place], [place] 120, [place] [id number] Aravind, tel: , [place]. [place], tel: [phone]. [id number] tel:[phone] Tyler Nazario Supervision of Nov-1 Julian Referring In Womens other high risk 6-201 [place]. 700 Provider: Health PA, pregnancies, 7 Medical [place] PO Box first Center Julian R, 1522, trimesterPrevious [place] Enrique, Low Transverse 120, Medical CORRINE, C-SectionEncntr Whitley Nazario Dr [id number], screen for [place], [place] 120, [place] infections w sexl [id number] Aravind, tel: mode of , [place]. [place], transmissEncounte tel: [phone]. r for screening [id number] tel: for oth [phone] infec/parastc diseasesEncounter for screening of mother8 weeks gestation of Tyler Nazario Irregular Menses Julian In Womens [place]. 700 Health PA, 6 Medical PO Box Center 1522, [place] Enrique, [facility], Aravind [place], [id number], [place], [id number] tel: , [place]. 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 700 Provider: Health PA, (routine) w/o abn [address] [facility] PO Box findingsPap Smear Center Julian R, 1522, Screening, [facility] Di[facility] Hart, [facility], Medical Aravind [address] [id number], [place], [facility] 120, [place] [id number] Aravind, tel: , [place]. [place], tel: [phone]. [id number] tel:[phone] Tyler Nazario Julian In Womens [place]. 700 Health PA, 1 Medical PO Box Center 1522, [place] Enrique, [facility], Aravind [place], [id number], [place], [id number] tel: , [place]. tel: [phone] Family History Family Member Diagnosis Age At [...] party ID Authorization(s) [place] Out Of State [id number] [facility] [id number] Social History Type Description Quantity Date Captured Alcohol Use Details No Caffeine Use Details Unknown Tobacco Use Status Unknown Smoking Status Never smoker Vital Signs Date / Height Weight BMI Pulse Blood Temperature Respiratory Body Head BMI Time: Rate Pressure Rate Surface Circumference percentile Area 233.70 44.8 122/82 -2018 lbs 8 mm[Hg] 8:25 kg/m AM eter (2) Chief Complaint And Reason For Visit Unknown Chief Complaint And Reason For Visit Reason For Referral Reason For Referral Unknown Plan Of Care Date Type Action Status Appointment Guerline Jimenez BOOKED Appointment Guerline Jimenez - [facility] - [facility]/S, PPTL BOOKED Future Order: Radiology Order Complete OB Ultrasound > 14 Ordered Weeks ([id number]) Date Type Problem Goal Intervention Status Start [...]
--- OUTSIDE RECORDS SUMMARY | 2018-02-19 01:15 | External Medical Summary | Continuity of Care Document ---
:1985 Author Organization [facility] Address [address] [place] [phone] Phone Support Name Relationship Address Phone Neftaly Jimenez spouse [address] 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 700 Provider: Health LISETTE, pregnancies, first 7 Medical [place] PO Box [id number] weeks Center Julian Suggs, 1522, gestation of [place] Enrique, 120, Medical [facility] [id number], [place], [facility] 120, [place] [id number] Aravind, tel: , [place]. [place], tel: [phone]. [phone] tel:[phone] Tyler Nazario Supervision of Sep- Julian Referring In Womens other high risk - [place]. 700 Provider: Health LISETTE, pregnancies, first 7 Medical [place] PO Box [id number] weeks Center Julian R, 1522, gestation of [place] Enrique, 120, Medical [facility] [id number], [place], [facility] 120, [place] [id number] Aravind, tel: , [place]. [place], tel:[phone]. [phone] tel:[phone] Tyler Nazario Supervision of Julian Referring In Womens other high risk - [place]. 700 Provider: Health LISETTE, pregnancies, first 7 Medical [place] PO Box trimesterPrevious Center Julian R, 1522, Low Transverse [place] Enrique, C-SectionEncntr 120, [facility], screen for Aravind [place] [id number], infections w sexl [place], [facility] 120, [place] mode of Aravind, tel: transmissEncounter , . [place], for screening for tel: [phone]. [facility] infec/parastc [id number] tel: diseasesEncounter [phone] for screening of mother8 weeks gestation of Tyler Nazario Irregular Menses Julian In Womens - [place]. 700 Jeri KNOX, 6 Medical PO Box Center 1522, [place] Enrique, 120, [place], [id number], [place], [place] [id number] tel: , [place]. 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 700 Provider: Health LISETTE, w/o abn findingsPap 6 [facility] PO Box Smear Screening, Center Julian R, 1522, Cervix , [place], 120, Medical [place], Nazario, Center [id number], [place], [place] 120, [place] [id number] Nazario, tel: , [place]. [place], tel: [phone]. [id number] tel:[phone] Tyler Nazario Julian In Women [place]. 700 Health PA, 1 Medical PO Box Center 1522, [place] Enrique, 120, Aravind [place], [id number], [place], [place] [id number] tel: , [place]. tel: [phone] Family History Family Member Diagnosis Age At Onset Mother Thyroid Disorder Paternal Grandfather Cardiovascular Disease Maternal Grandmother Thyroid Disorder No family history of Pulmonary Embolism Paternal Grandfather Diabetes mellitus Paternal Grandmother Diabetes mellitus No family history of Venous Thrombosis Immunizations Vaccine Date Status Comments Influenza, injectable, completed Source: Source Unspecified quadrivalent, preservative free, 3 yrs or older Payers Payer name Insurance type Covered republican ID Authorization(s) LEONORA ARRIOLA [id number] Social History Type Description Quantity Date Captured [...]
[2018-02-19] MEDS: ACETAMINOPHEN 500 MG TABLET PO PRN (01:42)
[2018-02-19] MEDS ORDERED: FAMOTIDINE 20 MG TABLET PO SCH (01:45)
[2018-02-19] MEDS ORDERED: LR 1,000 ML IV SCH (02:45)
--- NOTE | 2018-02-19 03:58 | Consult Note ---
Consult Information - Data of Consult Consult date: 02/19/18 Requesting Physician: Wilmer Jordan MD Primary Care Provider: Livier Acharya MD Family Provider: Livier Acharya MD - Consult Narrative Reason for consult: acute pancreatitis History of present illness: Please note that the patient was seen via telemedicine with nursing assistance on 02/19/2018. Mrs. Jimenez is a very pleasant 32yo (1st vag, 2&3 ) 31.2w woman with acute onset just after MN today of epigastric constant abdominal pain. Now 6/10 with nausea but no emesis. No sob or CP. Pain is worse with deep inspiration. Stool today with no blood. Has felt baby as per usual. Has migraines as well with no fioracet for over a week. No other med changes. No other abd surgeries (has GB). No previous episodes of pancreatitis. Past Medical History Medical History Updates: mild intermittent asthma Surgical History: C-sections only Family History: mother alive with HTN No gallstones, etc father alive with HTN, T2D, tics Family History: Other (see above) - Social History Smoking status: Never smoker Substance use type: does not use Alcohol intake frequency: does not drink Review of Systems - Constitutional Constitutional: Present: as per HPI Medications Home Medications Medication Instructions Recorded Confirmed Type Pnv No.95/Ferrous Fum/Folic AC 1 each PO DAILY 02/19/18 02/19/18 History [ Vitamins Tablet] Allergies Allergy/AdvReac Type Severity Reaction Status Date / Time NKDA Allergy Unknown Uncoded 02/19/18 04:33 Exam - Constitutional Present: mild distress - Routine HEENT Exam Head: Present: normocephalic, atraumatic Eye: Present: EOMI ENT: Present: mucous membranes moist - Routine Neck Exam Present: full ROM - Routine Respiratory Exam Present: CTA bilaterally. Absent: accessory muscle use, respiratory distress - Routine Cardiovascular Exam Present: RRR, S1, S2, no murmur - Routine Abdominal Exam Present: soft, normoactive bowel sounds Comments: - Routine Extremities Exam Absent: cyanosis, clubbing - Routine Back/Spine/Pelvis Exam Back/Spine: Present: full ROM - Routine Neurological Exam Present: alert, oriented X3, CN II-XII intact, moving all extremities - Routine Psychiatric Exam Present: normal affect, normal thought process, good insight Results - Labs CBC & Chem 7: 02/19/18 01:44 02/19/18 07:05 Assessment and Plan (1) Acute pancreatitis Current visit: Yes Status: Acute (2) Hypokalemia Current visit: Yes Status: Acute (3) Current visit: Yes Status: Acute Assessment and Plan: 1. Acute pancreatitis--would expect GB disease as causal, but surprisingly LFTs normal. No etoh, viral, med induced obviously. Hopefully passing a stone. NPO, IVF, prn morphine, AM today US abd boy GB et al. Repeat labs 0800 and if not improved through the day could possibly need transfer for ERCP if were to be stone induced. 2. Hypokalemia--IV supp 3. [id number] per primary team 4. Mild intermittent asthma--prn albuterol Resuscitation Status: Full Code - Physician Narrative Physician: Sakina Lutz MD Narrative: Date: 02/19/18 Time: 1120 Dr. Beach's note reviewed. Guerline interviewed and examined. CC: Abdominal pain HPI: Shweta 32-year-old 32 week female who presented with acute onset upper abdominal pain overnight. Pain started abruptly just after midnight in the epigastric area spreading to the right and left upper quadrants. There was associated nausea and fear that she would vomit although no vomiting actually occurred. She reports that she's had right and left upper quadrant pain intermittently in the latter part of her which she's attributed to increased uterine size and pressure on the upper abdomen; she has not correlated to pain with meals or food content. The pain is not associated with nausea. Early in the she felt like food would hang up in the esophagus but that sensation has subsided and been replaced with heartburn and reflux later in . She has not previously been advised of history of gallstones or had symptoms suggestive of gallstones. She denied fever overnight and had normal/increased movements. She presented to the emergency room by EMS due to severity of pain overnight and was subsequently admitted to labor and delivery where laboratory data was consistent with acute pancreatitis. Overall pain has improved this morning and is now primarily located in the left flank; there is residual nausea being managed adequately with Zofran. She has required morphine on 2 occasions overnight. PH/SH/FH: agree with that recorded above by Dr. Beach although patient denies past history of asthma. ROS: 10 point review positive only for reflux with , feels hot all the time-again with , and history of migraines. Remainder of comprehensive ROS negative or as per history of present illness. EXAM: General-NAD, alert, fluent speech HEENT-PERRL, EOMI without nystagmus, conjunctiva clear, sclera anicteric, conjugate gaze, facial structures symmetric, oropharynx clear, neck supple and without adenopathy Lungs-respirations nonlabored, good airflow, breath sounds clear anteriorly Cardiac-regular rhythm, S1-S2, soft systolic flow murmur Abd-gravid abdomen, bowel sounds present, moderate tenderness to palpation upper abdomen primarily without guarding, +/-Sneed's sign Ext-without edema Skin-without rash, jaundice, wounds Neuro-cranial nerves 3-12 intact, motor tone/power within normal limits, sensation intact to light touch 4 extremities Psych-calm, cooperative DATA: Lipase 13,[id number], AST 21-84, ALT 13-44, bilirubin and alkaline phosphatase are normal; white count 10.5, hemoglobin 11.5, electrolytes unremarkable except admitting potassium 3.5 UA with trace ketones, trace glucose, trace protein Abdominal sonogram reviewed by myself demonstrating multiple gallstones with minor gallbladder wall thickening; formal report pending A/P: Acute pancreatitis Cholelithiasis Hypokalemia, corrected Intrauterine , 32 weeks Normocytic anemia Clinically there is suggestion of improvement with conservative management overnight; presentation consistent with gallstone pancreatitis. No history of alcohol use. Will screen triglycerides in the morning and follow lipids/lipase. Discussed with Dr. Acharya and Dr. Nelson. Will require surgery at some point but likely after patient delivers. Continue IV fluids, may have ice chips for oral comfort. Continue IV antiemetics/narcotics for pain control. Hospital Course Summary Disclaimer: The visit summary below is not to be considered part of the above Progress Note.
[2018-02-19] MEDS ORDERED: ONDANSETRON 4 MG/2 ML INJECTION IVP PRN (04:11)
[2018-02-19] MEDS: ONDANSETRON 4 MG/2 ML INJECTION IVP PRN ×3 (04:19→17:15)
[2018-02-19] MEDS: MORPHINE SULFATE 2mg INJ IVP PRN ×4 (04:26→20:56)
[2018-02-19] MEDS: D5-1/2NS with KCL 20mEq 1,000 ML IV SCH ×5 (04:27→22:39)
[2018-02-19 04:31] VITALS: BMI 44.0
--- NOTE | 2018-02-19 09:54 | OB/GYN History & Physical ---
- History of Present Illness Date of Admission: 02/19/18 02:27 History of Present Illness: Guerline is a 32 year old at 32w2d who was brought in by EMS in the middle of the night for acute onset of severe epigastric pain. She's had heartburn and "digestive problems" the entire . Nausea has improved this AM with Zofran. No diarrhea. Good FM. No ctx/LOF/VB. On admission, her lipase was elevated c/w pancreatitis. She was made NPO, started on IV fluids, and the hospitalist was consulted. : 4 Para: 3 Review of Systems - Cardiovascular Cardiovascular: Absent: chest pain, dyspnea on exertion - Respiratory Respiratory: Absent: dyspnea - Gastrointestinal Gastrointestinal: Present: abdominal pain, nausea. Absent: diarrhea, vomiting - Genitourinary Genitourinary: Absent: dysuria, urinary frequency, vaginal discharge - Musculoskeletal Musculoskeletal: Present: back pain. Absent: myalgias - Integumentary/Breasts Integumentary: Absent: pruritus, jaundice - Neurological Neurological: Absent: headache(s), loss of vision, numbness PFSH Patient Stated Medical History Migraine Yes Heart Murmur Yes Herpes Yes: No recent outbreaks Human Immunodeficiency Virus ( No HIV) Maternal Gestational Diabetes No Now Yes Medical History Updates: mild intermittent asthma Surgical History: C-sections only - Social History Smoking status: Never smoker Substance use type: does not use Alcohol intake frequency: does not drink Medications Home Medications Medication Instructions Recorded Confirmed Type Pnv No.95/Ferrous Fum/Folic AC 1 each PO DAILY 02/19/18 02/19/18 History [ Vitamins Tablet] Allergies Allergy/AdvReac Type Severity Reaction Status Date / Time NKDA Allergy Unknown Uncoded 02/19/18 04:33 Exam - Constitutional Present: mild distress, obese - Neck Exam Present: full ROM - Abdominal Exam Present: soft, tenderness (Epigastric) - Neurological Exam Present: alert, oriented X3 - 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 Results - Labs CBC & Chem 7: 02/19/18 01:44 02/19/18 07:05 Labs: UA Ur Collection Type Urine, void-cc/notcc 02/19/18 01:58 Urine Color Yellow (YELLOW) 02/19/18 01:58 Urine pH 7.0 (5.0-8.0) 02/19/18 01:58 Ur Specific [place] 1.020 (1.015-1.025) 02/19/18 01:58 Urine Protein Trace (NEGATIVE) A 02/19/18 01:58 Urine Glucose (UA) Trace (NEGATIVE) A 02/19/18 01:58 Urine Ketones Trace (NEGATIVE) A 02/19/18 01:58 Urine Occult Blood Negative (NEGATIVE) 02/19/18 01:58 Urine Nitrate Negative (NEGATIVE) 02/19/18 01:58 Urine Bilirubin Negative (NEGATIVE) 02/19/18 01:58 Urine Urobilinogen 0.2 EU/DL (NORMAL) 02/19/18 01:58 Ur Leukocyte Esterase Negative (NEGATIVE) 02/19/18 01:58 Laboratory Tests 02/19/18 02/19/18 02/19/18 01:44 07:05 07:05 Magnesium 1.9 AST 21 84 H D ALT 13 44 H D Lipase 01306 H 8834 H Antepartum Assessment and Plan (1) Current visit: Yes Status: Acute Plan: Other (Daily NST) (2) Acute pancreatitis Current visit: Yes Status: Acute Plan: Other (Per hospitalist. Her lipase has come down, but her AST/ALT have risen. ) (3) Gallstones Current visit: Yes Status: Acute Plan: Other (I spoke with the patient during her sono. The sebd teacher reports that she does have gallstones, so I will consult general surgery. Ideally, a cholecystectomy would wait until after delivery. However, if the gallbladder is diseased enough to cause pancreatitis, she may need surgery prior to delivery. )
[2018-02-19] MEDS ORDERED: FAMOTIDINE PB 20 MG/50 ML BAG IV SCH (21:00)
[2018-02-20] MEDS: MORPHINE SULFATE 2mg INJ IVP PRN (01:15)
[2018-02-20] MEDS: D5-1/2NS with KCL 20mEq 1,000 ML IV SCH ×2 (07:06→16:47)
[2018-02-20] MEDS: ACETAMINOPHEN 500 MG TABLET PO PRN (07:09)
--- NOTE | 2018-02-20 07:45 | Consultation ---
DATE OF CONSULTATION 02/19/2018 HISTORY OF PRESENT ILLNESS This patient is 32 years old. She is 4, para 3. She is 32 weeks at this time. The patient did experience the acute onset of upper abdominal pain shortly after midnight today. The patient did call the ambulance and was transported by EMS to [facility] where she was admitted. The patient has continued to have abdominal pain since admission. The laboratory studies performed at admission to the hospital have shown an elevated serum lipase consistent with acute pancreatitis. The patient has had no previous episodes of pancreatitis. PAST MEDICAL HISTORY Previous Operations: The patient has had two previous section operations. PHYSICAL EXAMINATION VITAL SIGNS: Temperature is 97.3 degrees Fahrenheit oral. Pulse is 88 Respiratory rate is 18. Blood pressure is 134/70. Oxygen saturation is 99% on room air. ABDOMEN: The abdomen has a gravid state consistent with the history of the patient being 32 weeks . There is diffuse abdominal tenderness in all four quadrants at this time. The abdomen is soft. LABORATORY DATA White blood cell count is 10,500. Hemoglobin is 11.5. Hematocrit is 34.5. Serum lipase was 13,519 at 0144 hours today. Repeat serum lipase was 8,834 at 0705 hours today. Total bilirubin is 0.3. Alkaline phosphatase is 100. These are both normal. AST is mildly elevated at 84. ALT is mildly elevated at 44. IMAGING DATA This patient did have a gallbladder sonogram performed this morning. The pharmacy intake technician reports that the patient does have gallstones and some thickening of the gallbladder wall. IMPRESSION Acute gallstone pancreatitis. RECOMMENDATIONS 1. Initial treatment for the acute gallstone pancreatitis with bowel rest, intravenous fluid administration, analgesics, antiemetics and monitoring of laboratory studies. 2. In this particular patient, I would recommend that she undergo laparoscopic cholecystectomy after she has delivered her rather than attempting to perform laparoscopic cholecystectomy during this hospitalization after the pancreatitis has resolved. I did advise the patient to avoid any greasy or fatty foods between now and the time that her infant is delivered. Hopefully she will not have another episode of acute pancreatitis between now and the time that her is delivered. The patient should then have an elective laparoscopic cholecystectomy at some time fairly soon after her infant is delivered to prevent future episodes of the acute cholecystitis and acute gallstone pancreatitis. INFORMED DISCLOSURE I did talk with the inpatient quite a bit today about the gallstone pancreatitis process. I did tell her that she should undergo laparoscopic cholecystectomy at some point to prevent further episodes of acute gallstone pancreatitis after this episode resolves. We did talk about timing of the operation. I did talk with the patient about waiting until after she delivers her infant to do this. I did solicit questions from the patient. The patient did have various good questions about all this which I did answer for her today. She had no further questions at the end of the discussion. She does agree with the plan to wait until after she delivers her to undergo laparoscopic cholecystectomy. She states she will be willing to come in after she delivers her infant and undergo laparoscopic cholecystectomy to prevent future episodes like this. WILLIAM
--- NOTE | 2018-02-20 08:38 | OB/GYN Progress Note ---
TOP TILE DECORATOR Progress Note - Subjective Today's Date: 02/20/18 Doing well, Pain improving, Denies CTX, VB, LOF. Reports good FM - Objective Vital signs: Temperature 98.0 F 02/20/18 04:43 Pulse Rate 76 02/20/18 04:43 Respiratory Rate 16 02/20/18 04:43 Blood Pressure 114/69 02/20/18 04:43 Pulse Oximetry 97 02/20/18 04:43 General: alert and oriented Respiratory: non-labored Abdomen: non-tender, soft Abdomen: Gravid Laboratory Result: 02/20/18 04:34 02/20/18 04:34 Labs: UA Ur Collection Type Urine, void-cc/notcc 02/19/18 01:58 Urine Color Yellow (YELLOW) 02/19/18 01:58 Urine pH 7.0 (5.0-8.0) 02/19/18 01:58 Ur Specific [place] 1.020 (1.015-1.025) 02/19/18 01:58 Urine Protein Trace (NEGATIVE) A 02/19/18 01:58 Urine Glucose (UA) Trace (NEGATIVE) A 02/19/18 01:58 Urine Ketones Trace (NEGATIVE) A 02/19/18 01:58 Urine Occult Blood Negative (NEGATIVE) 02/19/18 01:58 Urine Nitrate Negative (NEGATIVE) 02/19/18 01:58 Urine Bilirubin Negative (NEGATIVE) 02/19/18 01:58 Urine Urobilinogen 0.2 EU/DL (NORMAL) 02/19/18 01:58 Ur Leukocyte Esterase Negative (NEGATIVE) 02/19/18 01:58 - Assessment and Plan (1) Acute pancreatitis Qualifiers: Pancreatitis type: biliary Acute pancreatitis complication: unspecified Qualified Code(s): K85.10 - Biliary acute pancreatitis without necrosis or infection Comment: Per Hospitalist. Appreciate consult (2) Qualifiers: Weeks of gestation: 32 weeks Qualified Code(s): Z3A.32 - 32 weeks gestation of Comment: Continue current cares.
[2018-02-20] MEDS ORDERED: MORPHINE SULFATE 4mg INJECTION IVP PRN (09:30)
[2018-02-20] MEDS: HYDROCODONE/APAP 7.5 MG/325 MG TABLET PO PRN ×3 (10:47→18:53)
[2018-02-20] MEDS: PRENATAL VITAMIN TABLET PO SCH (10:47)
--- NOTE | 2018-02-20 13:18 | Ultrasound Report ---
EXAM: US abdomen complete LOCATION OF DICTATION: [place] HISTORY: acute pancreatitis COMPARISON: No prior studies available for comparison. Multiple real-time grayscale sonographic images were obtained of the abdomen with and without color flow. FINDINGS: Visualized portions of the head and body of the pancreas are unremarkable. The visualized portions of the aorta and IVC are unremarkable. Focal fatty infiltration with fatty sparing in the left hepatic lobe. The liver measures 16.96 cm.There is normal directional flow of the hepatic vasculature. Both the intra and extrahepatic biliary system are of normal caliber. The common bile duct measures 0.38 cm in maximum diameter. Mild gallbladder wall thickening..The gallbladder wall measures 0.35 cm in maximum diameter. Gallstones are demonstrated. The patient did not demonstrate a positive sonographic Sneed sign. The kidneys are normal in size without hydronephrosis or mass. Both kidneys demonstrate normal corticomedullary differentiation. The right kidney measures 12.4 x 5.1 x 6.1 cm and left kidney measures 12.9 x 5.9 x 5.3 cm. The spleen is unremarkable. The spleen measures 12.21 cm. No free fluid. IMPRESSION: 1. Focal fatty infiltration of the liver with fatty sparing in the left hepatic lobe. 2. Mild gallbladder wall thickening measuring 0.35 cm. Cholelithiasis is also demonstrated. The patient however did not demonstrate a positive sonographic Sneed sign. Hepatomegaly scan could be utilized to further evaluate if clinically indicated. .
--- NOTE | 2018-02-20 13:36 | Progress Note ---
- Date 02/20/18 Subjective: Guerline reports feeling significantly improved today. She continues to have some discomfort under her ribs bilaterally and she has the last month or so to of her and she is having an achy sensation in the flanks bilaterally- greater on the left that comes and goes. She's used morphine for this because Tylenol isn't strong enough and no alternate pain medications are available. She 's had no further nausea or vomiting and has tolerated some ice chips and Jell- O this morning. She denied dyspnea, lightheadedness, palpitations, or difficulty urinating. She's been ambulating without difficulty. She continues to feel normal movements. Objective Vital signs: Temperature 97.8 F 02/20/18 12:00 Pulse Rate 78 02/20/18 12:00 Respiratory Rate 16 02/20/18 12:00 Blood Pressure 134/82 02/20/18 12:00 Pulse Oximetry 98 02/20/18 12:00 NAD, alert, fluent speech Conjunctiva clear, sclera anicteric Respirations nonlabored, good airflow, breath sounds clear anteriorly/ posteriorly Regular rhythm, S1-S2, soft systolic murmur Gravid abdomen with bowel sounds present, soft, no guarding or tenderness on palpation Extremities without edema Height/Weight/BMI: Height 1.55 m Weight 105.687 kg Body Mass Index 44.0 Results - Labs CBC & Chem 7: 02/20/18 04:34 02/20/18 04:34 Labs: Lipase 191, AST 38, ALT 32, bilirubin/phosphatase normal. Assessment and Plan (1) Acute pancreatitis Problem details: Per Hospitalist. Appreciate consult Current visit: Yes Status: Acute (2) Hypokalemia Current visit: Yes Status: Acute (3) Problem details: Continue current cares. Current visit: Yes Status: Acute Assessment and Plan: Impression: Acute gallstone pancreatitis Cholelithiasis Hypokalemia, POA-resolved Intrauterine , 32 weeks Normocytic anemia Plan: Significantly improved; initiate clear liquids. Given resolution of abnormal enzymes I favor advancing diet as tolerated. Patient advised to avoid fatty foods. Potassium corrected with fluids overnight; if taking fluids well by midday will decrease or discontinue IV fluids. [place] 7.5 1 every 4 hours when necessary added as an alternative to IV medications for pain. Ambulation encouraged. vitamin resumed. Discussed with Dr. Gonzalez. DVT Prophylaxis: SCD's GI Prophylaxis: Pepcid Resuscitation Status: Full Code - Physician Narrative Narrative: Date: 02/20/18 Time: 1333 Hospital Course Summary Disclaimer: The visit summary below is not to be considered part of the above Progress Note.
[2018-02-20] MEDS: ONDANSETRON 4 MG/2 ML INJECTION IVP PRN ×2 (14:47→20:14)
[2018-02-20] MEDS: FAMOTIDINE 20 MG TABLET PO SCH (22:39)
[2018-02-21] MEDS: HYDROCODONE/APAP 7.5 MG/325 MG TABLET PO PRN ×4 (03:22→22:34)
--- NOTE | 2018-02-21 07:39 | Progress Note ---
DATE 02/20/2018 HISTORY The patient states that her abdominal pain is better today than it was yesterday but she is still having quite a bit of generalized abdominal pain. She is still using analgesics for pain control. A clear liquid diet was started this morning by the hospitalist service. This has been advanced to a regular diet by the hospitalist service. PHYSICAL EXAMINATION VITAL SIGNS: Temperature is 97.8 degrees Fahrenheit oral. Pulse is 78. Respiratory rate is 16. Blood pressure is 134/82. Oxygen saturation is 98% on room air. ABDOMEN: The abdomen does have changes consistent with the gravid state. The abdomen is soft. There continues to be diffuse abdominal tenderness in all quadrants. LABORATORY White blood cell count is 5,900. Hemoglobin is 10.5. Hematocrit is 31.6. Serum lipase is 191 which is normal. Total bilirubin is 0.3. Alkaline phosphatase is 93. AST is 38. ALT is 32. IMPRESSION 1. Acute gallstone pancreatitis which is responding to nonoperative treatment. RECOMMENDATIONS Continue medical treatment of acute gallstone pancreatitis with bowel rest, intravenous fluid administration, analgesics, antiemetics and monitoring of laboratory studies, Continue treatment until the abdominal pain resolves in addition to the laboratory studies returning to normal. MTDD
--- NOTE | 2018-02-21 08:13 | OB/GYN Progress Note ---
TEAM MEMBER Progress Note - Subjective Today's Date: 02/21/18 Patient sleeping. Nurse reports patient is tolerating PO. The heating pad helps her pain in addition to the [place]. The nurse reports no complaints. - Objective Vital signs: Temperature 98.1 F 02/21/18 03:35 Pulse Rate 73 02/21/18 03:35 Respiratory Rate 16 02/21/18 03:35 Blood Pressure 111/64 02/21/18 03:35 Pulse Oximetry 96 02/21/18 03:35 General: sleeping Respiratory: non-labored Laboratory Result: 02/20/18 04:34 02/21/18 04:40 Labs: UA Ur Collection Type Urine, void-cc/notcc 02/19/18 01:58 Urine Color Yellow (YELLOW) 02/19/18 01:58 Urine pH 7.0 (5.0-8.0) 02/19/18 01:58 Ur Specific [place] 1.020 (1.015-1.025) 02/19/18 01:58 Urine Protein Trace (NEGATIVE) A 02/19/18 01:58 Urine Glucose (UA) Trace (NEGATIVE) A 02/19/18 01:58 Urine Ketones Trace (NEGATIVE) A 02/19/18 01:58 Urine Occult Blood Negative (NEGATIVE) 02/19/18 01:58 Urine Nitrate Negative (NEGATIVE) 02/19/18 01:58 Urine Bilirubin Negative (NEGATIVE) 02/19/18 01:58 Urine Urobilinogen 0.2 EU/DL (NORMAL) 02/19/18 01:58 Ur Leukocyte Esterase Negative (NEGATIVE) 02/19/18 01:58 Laboratory Tests 02/20/18 02/21/18 04:34 04:40 AST 31 ALT 26 Lipase 191 D - Assessment and Plan (1) Qualifiers: Weeks of gestation: 32 weeks Qualified Code(s): Z3A.32 - 32 weeks gestation of Comment: NST yesterday was reactive. (2) Acute pancreatitis Qualifiers: Pancreatitis type: biliary Acute pancreatitis complication: unspecified Qualified Code(s): K85.10 - Biliary acute pancreatitis without necrosis or infection Comment: Per Hospitalist. Appreciate consult (3) Gallstones Comment: Per Dr. Nelson.
[2018-02-21] MEDS: PRENATAL VITAMIN TABLET PO SCH (10:12)
--- NOTE | 2018-02-21 14:10 | Progress Note ---
- Date 02/21/18 Subjective: Guerline reports continued ache in the flanks bilaterally and across the upper abdomen; ache does not correspond with meals or fluid ingestion but she has noted that oral intake triggers minor nausea requiring use of Zofran yesterday afternoon and again yesterday evening. The aching sensation has required continued use of [place] on a fairly regular basis. She's not had a bowel movement in several days. She tried eating a sandwich yesterday but had increased nausea immediately afterward and subsequently backed off restricting to liquids/limited bland foods. She denied dyspnea, lightheadedness, other unrelated pain area she is voiding without difficulty. Objective Vital signs: Temperature 98.3 F 02/21/18 11:40 Pulse Rate 77 02/21/18 11:40 Respiratory Rate 16 02/21/18 11:40 Blood Pressure 107/56 02/21/18 11:40 Pulse Oximetry 97-RA 02/21/18 11:40 NAD, alert Sclera anicteric Respirations nonlabored, good airflow, breath sounds clear Regular rhythm, S1-S2 Gravid abdomen, soft, nontender, diminished bowel sounds Extremities without edema Height/Weight/BMI: Height 1.55 m Weight 105.687 kg Body Mass Index 44.0 Results - Labs CBC & Chem 7: 02/20/18 04:34 02/21/18 04:40 Labs: Liver enzymes normal, albumin 3.1 Assessment and Plan (1) Acute pancreatitis Problem details: Per Hospitalist. Appreciate consult Current visit: Yes Status: Acute (2) Hypokalemia Current visit: Yes Status: Acute (3) Problem details: NST yesterday was reactive. Current visit: Yes Status: Acute Assessment and Plan: Impression: Acute gallstone pancreatitis Cholelithiasis Hypokalemia, POA-resolved Intrauterine , 32 weeks Normocytic anemia Plan: Continues to do well, given mild nausea with food of recommended that she largely restricted to clear liquids, toast, crackers, very bland foods. Again discussed need to avoid fatty foods throughout the remainder of . Will ask dietitian to provide handouts to assist patient with food choices. Nursing reports good fluid intake-IV fluids discontinued. Adequate control of pain with oral medications but still requiring IV Zofran intermittently. Continue to monitor; will add oral Zofran. From my perspective can discharge when tolerating liquids adequately to avoid dehydration and symptoms can be effectively managed with oral regimen. Discussed with nursing. GI Prophylaxis: Pepcid Resuscitation Status: Full Code - Physician Narrative Narrative: Date: 02/21/18 Time: 1407 Hospital Course Summary Disclaimer: The visit summary below is not to be considered part of the above Progress Note.
[2018-02-21] MEDS ORDERED: ONDANSETRON 4 MG TABLET PO PRN (14:13)
--- NOTE | 2018-02-21 14:19 | Progress Note ---
DATE: 02/21/2018 HISTORY OF PRESENT ILLNESS The patient has been restricting her diet to a clear liquid diet with toast and crackers. She was having nausea yesterday. She no longer has any nausea today. Her pain is noticeably less today than it was yesterday. The patient did use one [place] during the night last night for pain control. She has used one [place] so far today for pain control. She is feeling better overall. PHYSICAL EXAMINATION VITAL SIGNS: Temperature is 98.3 degrees Fahrenheit oral. Pulse is 77. Respiratory rate is 16. Blood pressure is 107/56. Oxygen saturation is 97% on room air. ABDOMEN: The abdomen is soft. There is no abdominal tenderness at the upper abdomen at this time. LABORATORY DATA Serum electrolytes are normal. AST is 31. ALT is 26. Total bilirubin is 0.4. Alkaline phosphatase is 78. IMPRESSION Acute gallstone pancreatitis which continues to improve and respond to nonoperative treatment. RECOMMENDATIONS Continue medical treatment of acute gallstone pancreatitis. MTDD
[2018-02-21] MEDS: FAMOTIDINE 20 MG TABLET PO SCH (22:34)
[2018-02-22] MEDS ORDERED: POLYETHYL GLYCOL 3350 17gm PACKET PO SCH (09:00)
--- NOTE | 2018-02-22 09:05 | Progress Note ---
- Date 02/22/18 Subjective: Crystals 32-year-old 32 week female who presented with acute onset upper abdominal pain overnight. Pain started abruptly just after midnight in the epigastric area spreading to the right and left upper quadrants. There was associated nausea and fear that she would vomit although no vomiting actually occurred. She reports that she's had right and left upper quadrant pain intermittently in the latter part of her which she's attributed to increased uterine size and pressure on the upper abdomen; she has not correlated to pain with meals or food content. The pain is not associated with nausea. Early in the she felt like food would hang up in the esophagus but that sensation has subsided and been replaced with heartburn and reflux later in . She has not previously been advised of history of gallstones or had symptoms suggestive of gallstones. She denied fever overnight and had normal/increased movements. She presented to the emergency room by EMS due to severity of pain overnight and was subsequently admitted to labor and delivery where laboratory data was consistent with acute pancreatitis. Overall pain has improved this morning and is now primarily located in the left flank; there is residual nausea being managed adequately with Zofran. She has required morphine on 2 occasions overnight. Her lipase has trended down since admission and has normalized. Her diet has been advanced and she is tolerating normal diet at present. When seen by me this am, she is feeling very good. No nausea, vomiting. She has not had a BM in 3 days. She is passing gas. She does have mild abdominal discomfort but mostly located in the lower quadrants and pelvic area, not in the RUQ. She has been up and walking without issues. She feels ready to go home. Objective Vital signs: Temperature 98.0 F 02/21/18 20:00 Pulse Rate 73 02/21/18 20:00 Respiratory Rate 18 02/21/18 20:00 Blood Pressure 109/62 02/21/18 20:00 Pulse Oximetry 98 02/21/18 20:00 Height/Weight/BMI: Height 1.55 m Weight 105.687 kg Body Mass Index 44.0 Comments: Gen: alert and oriented. NAD Skin: warm and dry HEENT: NC/AT PERRL, EOMI, Sclera, lids and conjunctiva wnl, MMM, OP clear Neck: supple. No JVD, Carotids 2+ without bruits. Lungs: clear, No rales, rhonchi, wheezes. CV: regular. 2/6 murmur No rub or gallop Abd: Gravid, soft. NT, +BS MS: No edema. Good strength and ROM. Neuro: No focal deficit Psy: normal mood and affect Results - Labs CBC & Chem 7: 02/22/18 04:50 02/22/18 04:50 Assessment and Plan (1) Acute pancreatitis Problem details: Per Hospitalist. Appreciate consult Current visit: Yes Status: Acute (2) Hypokalemia Current visit: Yes Status: Acute (3) Problem details: NST yesterday was reactive. Current visit: Yes Status: Acute Assessment and Plan: Impression/Plan: Acute gallstone pancreatitis -Lipase normalized -Surgery consulted -Plan for outpt follow up with surgery once baby delivered for cholecystectomy -Pt advised to avoid fatty foods. Cholelithiasis -Plan for outpt follow up with surgery once baby delivered for cholecystectomy Constipation -Senna and miralax Hypokalemia, POA -resolved Intrauterine , 32 weeks Normocytic anemia Pt to call PCP if she does not have a BM in the next day or so. SHe is to follow up with OB next week. Call for follow up appt with Dr. Nelson after delivery. - Physician Narrative Narrative: Date: 02/22/18 Time: 09 Hospital Course Summary Disclaimer: The visit summary below is not to be considered part of the above Progress Note.
--- NOTE | 2018-02-22 09:21 | OB/GYN Progress Note ---
BRANCH COORDINATOR Progress Note - Subjective Today's Date: 02/22/18 Feeling much better and desires dismissal. Her epigastric pain has resolved, and she is tolerating PO. No ctx/LOF/VB. Good FM. Having the usual RL pain. - Objective Vital signs: Temperature 98.0 F 02/21/18 20:00 Pulse Rate 73 02/21/18 20:00 Respiratory Rate 18 02/21/18 20:00 Blood Pressure 109/62 02/21/18 20:00 Pulse Oximetry 98 02/21/18 20:00 General: alert and oriented Respiratory: non-labored Laboratory Result: 02/22/18 04:50 02/22/18 04:50 Labs: UA Ur Collection Type Urine, void-cc/notcc 02/19/18 01:58 Urine Color Yellow (YELLOW) 02/19/18 01:58 Urine pH 7.0 (5.0-8.0) 02/19/18 01:58 Ur Specific [place] 1.020 (1.015-1.025) 02/19/18 01:58 Urine Protein Trace (NEGATIVE) A 02/19/18 01:58 Urine Glucose (UA) Trace (NEGATIVE) A 02/19/18 01:58 Urine Ketones Trace (NEGATIVE) A 02/19/18 01:58 Urine Occult Blood Negative (NEGATIVE) 02/19/18 01:58 Urine Nitrate Negative (NEGATIVE) 02/19/18 01:58 Urine Bilirubin Negative (NEGATIVE) 02/19/18 01:58 Urine Urobilinogen 0.2 EU/DL (NORMAL) 02/19/18 01:58 Ur Leukocyte Esterase Negative (NEGATIVE) 02/19/18 01:58 Additional Findings: NST reactive without contractions. - Assessment and Plan (1) Qualifiers: Weeks of gestation: 32 weeks Qualified Code(s): Z3A.32 - 32 weeks gestation of Comment: Dismiss and follow up with Dr. Jordan in the next week. (2) Acute pancreatitis Qualifiers: Pancreatitis type: biliary Acute pancreatitis complication: unspecified Qualified Code(s): K85.10 - Biliary acute pancreatitis without necrosis or infection Comment: Per Hospitalist. Appreciate consult (3) Gallstones Comment: Follow up with Dr. Nelson. He plans for a cholecystectomy after delivery.
[2018-02-22] MEDS: PRENATAL VITAMIN TABLET PO SCH (09:25)
--- NOTE | 2018-02-22 09:28 | Discharge Summary ---
Discharge Information Date of admission: 02/20/18 17:00 Attending Physician: Wilmer Jordan MD Consults: 02/19/18 02:40 Physician Consult [CONS] Routine Consulting Provider: Judith No Reason For Exam: Pancreatitis Ordering Provider has Notified Network Technical Analyst: Yes 02/19/18 10:05 Physician Consult [CONS] Routine Consulting Provider: Moe Nelson Reason For Exam: Pancreatitis & gallstones Ordering Provider has Notified Network Technical Analyst: Yes 02/21/18 13:27 Dietary Consult [CONS] Routine Comment: Education on clear liquid and low fat diet Reason For Exam: increase pt. knowledge on specialized diet - Discharge Diagnosis (1) Status: Acute (2) Acute pancreatitis Status: Acute (3) Gallstones Status: Acute - Procedures Procedures: Daily NST - Laboratory Labs: 02/22/18 04:50 02/22/18 04:50 Laboratory Tests 02/19/18 02/19/18 02/20/18 01:44 07:05 04:34 AST 84 H D ALT 44 H D Lipase 38048 H 8834 H 191 D 02/21/18 04:40 AST 31 ALT 26 Lipase - Radiology Radiology: Abdominal sono History of Present Illness HPI: Patient is a at 32 weeks who was brought in by EMS for severe acute epigastric pain. She was found to have gallbladder pancreatitis. This was managed medically and resolved over 3 days. She will follow up with Dr. Nelson for a cholecystectomy after she delivers. Hospital Course This is a general summary of the patient's hospital course. For more details refer to the complete medical record. Discharge Plan - Med Rec/Dispo Referrals/Follow Up: Wilmer Jordan MD [Physician] - Moe Nelson MD [Physician] - Prescriptions: New Senna + Docusate [Senna Plus Tablet] 1 tab PO BID tab PEG 3350 17gm PACKET [Miralax] 17 gm PO DAILY packet Hydrocodone/APAP 7.5/325 [[place] 7.5/325] 1 tab PO Q4H PRN #15 tab PRN Reason: Pain Continue Pnv No.95/Ferrous Fum/Folic AC [ Vitamins Tablet] 1 each PO DAILY - Disposition 01 Discharged Home, Self-Care - Dismissal Complete Discharge Instructions are:: Complete
[2018-02-22] MEDS: HYDROCODONE/APAP 7.5 MG/325 MG TABLET PO PRN (09:30)
[2018-02-22 09:42] VITALS: BP 123/80; PULSE 78; RESP 16; TEMP 98.3; O2SAT 99
--- NOTE | 2018-02-22 11:21 | Progress Note ---
DATE 02/22/2018 HISTORY OF PRESENT ILLNESS The patient is feeling better today. She did pass some gas last night and felt better after this. The patient has not had a bowel movement for three days. She is having less abdominal discomfort. She is not having any nausea at this time. She is tolerating a clear liquid diet with toast and crackers. PHYSICAL EXAMINATION VITAL SIGNS: Temperature is 98 degrees Fahrenheit oral. Pulse is 73. Respiratory rate is 18. Blood pressure is 109/62. Oxygen saturation is 98% on room air. ABDOMEN: There is minimal abdominal tenderness. The abdomen is soft. LABORATORY DATA White blood cell count is 7000. Hemoglobin is 10.8. Hematocrit is 32.8. Serum electrolytes are normal. IMPRESSION 1. Acute gallstone pancreatitis which is nearly completely resolved in response to nonoperative treatment. 2. Intrauterine . 3. Constipation. RECOMMENDATIONS 1. Give the patient laxatives today to treat the constipation. 2. I think the patient is at a point where she could be safely dismissed from the hospital at this time. 3. I did talk with the patient today about coming to see me for an office visit after she has delivered her to talk about undergoing laparoscopic cholecystectomy for treatment of her chronic cholecystitis and cholelithiasis to prevent future episodes of acute gallstone pancreatitis. The patient does plan to do this. WILLIAM
[2018-02-22] MEDS ORDERED: SENNA + DOCUSATE TABLET PO SCH (21:00)
== END 2018-02-22 10:10 | disposition home or self-care (01) | DRG 781 ==
LOC: MC 01:05 → OBOBS 01:07
PROVIDERS: ADMIT Obstetrics & Gynecology; ATTEND Obstetrics & Gynecology

== ENCOUNTER 2018-03-29 11:43 | Inpatient (IN) ==
--- OUTSIDE RECORDS SUMMARY | 2018-03-29 11:49 | External Medical Summary | Continuity of Care Document ---
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 Acute Pancreatitis W/out Necrosis Or - Infection, Unspec Vomiting of , unspecified - Oth diseases and conditions compl - preg/chldbrth Supervision of other high risk - pregnancies, [...] other high risk - pregnancies, third trimester Liver and biliary tract disord in - , third trimester 33 weeks gestation of - Supervision of other high risk - pregnancies, third trimester 33 weeks gestation of - Vomiting of , unspecified - related exhaustion and - fatigue, second trimester 19 weeks gestation of - Previous Low Transverse - 30 weeks gestation of - Pap Smear Screening, Cervix - Body Mass Index 35.0-35.9, Adult - Active Menorrhagia Active Procedures Procedure Date Initial hospital care, low non-stress test Hospital discharge day care Results Test Name Date and Time Measure Units Reference Range Abnormal Flag Comments Unknown Advance Directives Directive Yes / No Effective Date File Name Unknown Encounters Encounter Practice Location Reason(s) Diagnoses Date Provider Care Team Description For Visit Members Tyler Nazario Supervision of Julian Referring In Womens other high risk 0-201 [place]. 700 Provider: Health PA, pregnancies, 8 Medical Wil[place] [address] third Center Julian Suggs, 1522, trimesterLiver , [place] 700 [place], and biliary tract 120, Medical [place], disord in [facility] [id number], , third CORRINE, [place] 120, [place] [id number] weeks [id number] Aravind, tel:[phone] gestation of , [place]. [place], tel: [phone]. [id number] tel:[phone] Tyler Nazario Supervision of May-0 Julian Referring In Womens other high risk 4-201 [place]. 700 Provider: Health PA, pregnancies, 8 Medical Wil[place] PO Box third [id number] Center Julian R, 1522, weeks gestation [place] Enrique, of 120, Medical [facility] [id number], [place], [place] 120, [place] [id number] Aravind, tel: , [place]. [place] tel: [phone]. [id number] tel:[phone] Initial Associates Aravind Acute Apr-2 Julian Referring hospital In Womens Pancreatitis 9-201 [place]. 700 Provider: kira ruiz, W/out Necrosis Or 8 Medical [place] PO Box Infection, Center Julian R, 1522, UnspecVomiting of [place] Enrique, , 120, Medical CORRINE, unspecifiedOth Aravind [place] [id number], diseases and [place], [place] 120, [place] conditions compl [id number] Aravind, tel: preg/chldbrth , [place]. [place] tel: [phone]. [id number] tel:[phone] Tyler Nazario Previous Low Apr-1 Julian Referring In Womens Transverse 7-201 [place]. 700 Provider: Jeri KNOX, [id number] weeks 8 Medical [place] PO Box gestation of Center Julian R, 1522, [place] Enrique, 120, Medical Aravind CASTLE [place] [id number], [place], [place] 120, [place] [id number] Aravind, tel: , [place]. [place] tel: [phone]. [id number] tel:[phone] Tyler Nazario Supervision of Apr-0 Julian Referring In Womens other high risk 3-201 [place]. 700 Provider: Health PA, pregnancies, 8 Medical [place] PO Box third Center Julian R, 1522, trimesterPrevious [place] Enrique [place], Low Transverse 120, Medical CORRINE, C-[place]Frequ[place] [id number], y of [place], [place] 120, [place] [id number] Aravind, tel:2 weeks gestation , [place]. [place], of tel: [phone]. [id number] tel:[phone] Tyler Nazario Previous Low Mar-0 Julian Referring In Womens Transverse 7-201 [place]. 700 Provider: Health LISETTE, [id number] weeks 8 Medical [place] PO Box gestation of Center Julian R, 1522, Dr [place] Dima Alonsota, 120, Medical [place], Aravind, [place] [id number], [place], [place] 120, [place] [id number] Aravind, tel: , [place]. [place], tel: [phone]. [id number] tel:[phone] Tyler Nazario Vomiting of Feb-0 Julian Referring In Womens , 7- [place]. 700 Provider: Health LISETTE, unspecifiedPregna 8 Medical Wil[place] PO Box ncy related Center Julian R, 1522, exhaustion and , [place] 700 [place], fatigue, second 120, Medical [place], [id number] weeks [facility] [id number], gestation of [place], [place] 120, [place] [id number] Nazario, tel: , [place]. [place] tel: [phone]. [id number] tel:[phone] Tyler Nazario Supervision of Feb-0 Julian Referring In Womens Ultrasound other high risk 7-201 [place]. 700 Provider: Health PA, pregnancies, 8 Medical Wil[place] PO Box second Center Julian R, 1522, trimesterPrevious , [place] Dima Apache, Low Transverse 120, Medical [place], [id number] [facility] [id number], gestation of [place], [place] 120, [place] [id number] Aravind, tel: , [place]. [place] tel: [phone]. [id number] tel:[phone] Tyler Nazario Supervision of Sumit-1 Julian Referring In Womens other high risk 0-201 [place]. 700 Provider: Health PA, pregnancies, 8 Medical Wil[place] PO Box second Center Julian R, 1522, trimesterSpotting Dr [place] Dima Hart, complicating 120, Medical [place], , second [facility] [id number], [id number] weeks [place], [place] 120, [place] gestation of [id number] Aravind, tel: , [place]. [place], tel:[phone]. [id number] tel:[phone] Tyler Nazario Supervision of Sep- Julian Referring In Womens other high risk 6-201 [place]. 700 Provider: Health [place], pregnancies, 7 Medical Wil[place] PO Box first [id number] Center Julian R, 1522, weeks gestation [place] Enrique, of 120, Medical [facility] [id number], [place], [place] 120, [place] [id number] Aravind, tel: , [place], tel:[phone]. [id number] tel:[phone] Tyler Nazario Supervision of Sep- Julian Referring In Womens other high risk 4-201 [place]. 700 Provider: Health [place], pregnancies, 7 Medical Wil[place] PO Box first [id number] Center Julian R, 1522, weeks gestation [place] Enrique, of 120, Medical [facility] [id number], [place], [place] 120, [place] [id number] Aravind, tel: , [place]. [place], tel:[phone]. [id number] tel:[phone] Tyler Nazario Supervision of Julian Referring In Womens other high risk 6-201 [place]. 700 Provider: Health PA, pregnancies, 7 Medical Wil[place] PO Box first [place] Julian R, 1522, trimesterPrevious [place] Enrique, Low Transverse 120, Medical [place], [facility] [id number], screen for [place], [place] 120, [place] infections w sexl [id number] Aravind, tel: mode of , [place]. [place], transmissEncounte tel:[phone]. r for screening [id number] tel: for oth [phone] infec/parastc diseasesEncounter for screening of mother8 weeks gestation of Tyler Nazario Irregular Menses Julian In Womens 1-201 [place]. 700 Health [place], 6 Medical PO Box Center 1522, [place] Enrique, 120, CORRINE, Aravind, [id number], [place], [id number] tel: , [place]. 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 700 Provider: Health PA, (routine) w/o abn 6 Medical [place] PO Box findingsPap Smear Center Julian R, 1522, Screening, Cervix Dr [facility] Dima Hart, [facility], [facility], [place] [id number], [place], [facility] 120, [id number] Aravind, tel: , . [place], tel: [phone]. [id number] tel:[phone] Tyler Nazario Julian In Womens - [place]. 700 Health PA, 1 Medical PO Box Center 1522, [place] Enrique, 120, Aravind CASTLE, [id number], [place], [id number] tel: , [place]. tel: [phone] Family History Family Member Diagnosis Age At Onset Mother Thyroid Disorder Paternal Grandfather Cardiovascular Disease Maternal Grandmother Thyroid Disorder No family history of Pulmonary Embolism Paternal Grandfather Diabetes mellitus Paternal Grandmother Diabetes mellitus No family history of Venous Thrombosis Immunizations Vaccine Date Status Comments Influenza, injectable, completed Source: Source Unspecified quadrivalent, preservative free, 3 yrs or older Payers Payer name Insurance type Covered democrat ID Authorization(s) [facility] Out Of State [id number] [facility] [id number] Social History Type Description Quantity Date Captured Alcohol Use Details No Caffeine Use Details Unknown Tobacco Use Status Unknown Smoking Status Never smoker Vital Signs Date / Height Weight BMI Pulse Blood Temperature Respiratory Body Head BMI Time: Rate Pressure Rate Surface Circumference percentile Area 1 10:26 kg/m AM elen (2) Chief Complaint And Reason For Visit Unknown Chief Complaint And Reason For Visit Reason For Referral Reason For Referral Unknown Plan Of Care Date Type Action Status Appointment Guerline Jimenez BOOKED Appointment Guerline Jimenez [facility] - RC/S, PPTL BOOKED Future Order: Radiology Order Complete OB Ultrasound > 14 Ordered Weeks ([id number]) Date Type Problem Goal Intervention Status Start [...]
[2018-03-29] MEDS: LR 1,000 ML IV SCH ×2 (12:17→16:00)
[2018-03-29 12:32] VITALS: BMI 43.4
[2018-03-29] MEDS ORDERED: CEFAZOLIN PREMIX (MC ONLY) 2 GM/50 ML BAG IV ONE (14:19)
[2018-03-29] MEDS ORDERED: CITRIC ACID/SODIUM CITRATE 30ml PO ONE (14:19)
[2018-03-29] MEDS ORDERED: FAMOTIDINE PB 20 MG/50 ML BAG IV ONE (14:19)
[2018-03-29] MEDS ORDERED: EPHEDRINE 50mg/ml INJECTION ONE (14:30)
[2018-03-29] MEDS ORDERED: PHENYLEPHRINE INJ 10 MG/ML VIAL IV ONE (14:30)
[2018-03-29] MEDS ORDERED: SALINE FLUSH 10ml SYRINGE ONE (14:30)
[2018-03-29] MEDS ORDERED: FentaNYL 250 MCG/5 ML INJECTION ONE (14:33)
[2018-03-29] MEDS ORDERED: MORPHINE SULFATE PF 5mg/10ml INJ (Duramorph) ONE (14:34)
[2018-03-29] MEDS ORDERED: LIDOCAINE 2% (100mg/5mL) 5ml PF SDV ONE (14:35)
[2018-03-29] MEDS ORDERED: EPINEPHrine 1mg/ml (1:1000) vial ONE (14:35)
[2018-03-29] MEDS ORDERED: BUPIVACAINE 0.75%/DEXTROSE 8.5% SPINAL 2 ML AMPULE IJ ONE (14:35)
[2018-03-29] MEDS: OXYTOCIN BOLUS BAG 30 UNIT/500 ML ML IV SCH ×2 (15:21→15:45)
--- NOTE | 2018-03-29 16:40 | Anesthesia Preoperative Report ---
Anesthesia Epidural/Spinal Rec - Date and Time Date: 03/29/18 Procedure: Plan: CSE - Vital Signs Vital Signs: Respiratory Rate 16 03/29/18 15:42 Pulse Oximetry 99 03/29/18 15:42 /Para: P:3 - Medictaions & Allergies Inpatient Medications: Current Medications Lactated Ringer's (Lactated Ringers) 1,000 mls @ 125 mls/hr IV .Q8H ESTELLA Last Admin: 03/29/18 16:00 Dose: 125 mls/hr Allergies/Adverse Reactions: Allergies Allergy/AdvReac Type Severity Reaction Status Date / Time NKDA Allergy Unknown Uncoded 03/29/18 12:27 - Home Medications Home Medications: Home Medications Medication Instructions Recorded Confirmed Type Pnv No.95/Ferrous Fum/Folic AC 1 each PO DAILY 02/19/18 03/23/18 History [ Vitamins Tablet] Hydrocodone/APAP 7.5/325 [Bucklin 1 tab PO Q4H PRN #15 tab 02/22/18 03/23/18 Rx 7.5/325] Acetaminophen [Tylenol] 1,000 mg PO Q5H PRN 03/23/18 History CALCIUM CARBONATE Chewable [Tums] 0 mg PO PRN PRN 03/23/18 History DiphenhydrAMINE [Benadryl] 2 cap PO Q6H PRN 03/23/18 History - Medical History Neuro/Musculoskeletal: Reports: Headaches Other History: Reports: Now - Surgical History Reproductive Surgery/Treatment: Reports: Section - Social History Smoking Status: Never smoker Second Hand Exposure: No Substance Use Type: does not use Alcohol Intake Frequency: does not drink Hx Chewing Tobacco Use: No - Pertinent Findings Lab Data: CBC and BMP 03/29/18 14:32 03/29/18 12:08 BMP 03/29/18 12:08 Sodium 141 Potassium 3.5 L Chloride 108 H Carbon Dioxide 21 L BUN 6.0 L Creatinine 0.4 L Glucose 111 H Calcium 9.2 Liver Function 03/29/18 Range/Units 12:08 Total Bilirubin 0.30 (0.20-1.30) MG/DL AST 19 (14-36) U/L ALT 14 (1-35) U/L Alkaline Phosphatase 115 (38-126) U/L Albumin 3.6 (3.5-5.0) g/dL EKG Rhythm: Normal Sinus Rhythm - Physical Exam Respiratory Exam: lungs clear Cardiovascular Exam: regular rate and rhythm, no murmur - Airway Assessment Mallampati Score: II TMD: 3 Fingerbreadths Neck Extension: good Overall Assessment: no airway concerns - ASA ASA Score: 2, E - Discussion Discussion: Discussed risks/options/alternatives of anesthesia and questions answered. Patient consents. Nursing pain assessment noted. Anesthesia Discussion: family member Attestation Statement: Prior to the delivery of any anesthetic medication, I examined the patient, developed the plan, obtained the patient's consent and discussed the risk and benefits of the procedure with the patient/guardian.
--- NOTE | 2018-03-29 16:58 | Operative Note ---
DATE OF SURGERY: 03/29/2018 PREOPERATIVE DIAGNOSIS 1. 32-year-old female, G5, P3 at 37.5 weeks gestational age. 2. Nonreassuring heart tones (repetitive late decelerations). 3. History of herpes simplex virus. 4. History of gallstone pancreatitis this . 5. Desires permanent sterilization. POSTOPERATIVE DIAGNOSIS 1. Male , 3014 grams (7 pounds 1.3 ounces), Apgars (Saul Neftaly ). 2. Nuchal cord x1. PROCEDURES: Repeat low transverse section and modified tubal ligation EBL: 600 mL ANESTHESIA: Spinal epidural by Christiano Cherry CRNA SURGEON: Wilmer Jordan MD PEST MANAGEMENT SUPERVISOR: Livier Acharya MD COMPLICATIONS: None DESCRIPTION OF PROCEDURE After adequate spinal epidural anesthesia, the patient was prepped and draped in the left lateral decubitus position. A Pfannenstiel skin incision was made with a sharp knife through the old scar and carried down the fascia, which was incised transversely with the Falk scissors. The rectus fascia was bluntly and sharply dissected off the rectus muscle. The rectus muscle was divided, and the peritoneum was isolated, elevated, entered with the Metzenbaum scissors and extended cephalad and caudad. The bladder blade was then inserted. Then using a sharp knife, a transverse incision was made in the lower uterine segment above the bladder. This was extended with my fingers. Male infant was delivered from the vertex position without difficulty. Infant was bulb suctioned after delivery of the head and then again after delivery of the body. Cord was doubly clamped and cut and the was received by Dr. Laura Corona of Pediatrics. Via cord blood retrieval system was then implemented to retrieve blood from the cord and the placenta. The placenta was expressed manually and was intact. The uterus was then allowed to fall upon the external abdominal wall. The endometrial cavity was cleansed using moist lap sponges. The uterus was closed using 0-Monocryl in a running locking fashion. Hemostasis was confirmed. The posterior cul-de-sac was cleansed of old blood clots and the tubes and ovaries were examined and found to be normal in size, shape and appearance. Our attention was then turned to tubal ligation. The right fallopian tube was isolated and then a mid-isthmic portion of the tube was grasped with the Madhavi clamp, elevated and then a knuckle of the tube was ligated using 2-0 chromic. A Anne clamp was passed through the meso of the tube and then the proximal and distal aspects of the knuckle of the tube were ligated using 2-0 silk. The knuckle of the tube was excised and sent to surgical pathology for lumen confirmation. This procedure was then repeated on the left side and hemostasis was confirmed. After hemostasis was again confirmed, the uterus was then carefully returned to the abdominal cavity. The abdomen was then closed in layers. The peritoneum was closed using 2-0 Vicryl in running nonlocking fashion. The fascia was closed using 0-Vicryl in a running nonlocking fashion bilaterally from the lateral aspects medially. Hemostasis was achieved with the subcutaneous tissue and plain gut was used to close the space. Then the skin was closed using wide rea in a serial fashion. Three horizontal mattress sutures of 3-0 Monocryl were placed to keep the skin edges everted.The patient tolerated the procedure well and went to the recovery room in stable condition. Pad, sponge and needle counts were correct and urine postop was clear and free flowing. MTDD
[2018-03-29] MEDS: D5LR 1,000 ML IV SCH (17:10)
[2018-03-29] MEDS ORDERED: CALCIUM CARBONATE Chewable 500mg TABLET PO PRN (17:14)
[2018-03-29] MEDS ORDERED: SALINE FLUSH 10ml SYRINGE IV PRN (17:14)
[2018-03-29] MEDS ORDERED: ACETAMINOPHEN 500 MG TABLET PO PRN (17:14)
[2018-03-29] MEDS ORDERED: ONDANSETRON ODT 4 MG TABLET PO PRN (17:14)
[2018-03-29] MEDS ORDERED: OXYTOCIN DRIP 30 UNIT/500 ML ML IV SCH (17:14)
[2018-03-29] MEDS ORDERED: NALOXONE 2 MG/2 ML INJECTION PFS IVP PRN (17:14)
[2018-03-29] MEDS ORDERED: DiphenhydrAMINE 25 MG CAPSULE PO PRN (17:14)
[2018-03-29] MEDS ORDERED: HYDROCORTISONE 2.5% CREAM 30gm RECTALLY PRN (17:14)
[2018-03-29] MEDS ORDERED: SIMETHICONE 80 MG CHEWABLE TABLET PO PRN (17:14)
[2018-03-29] MEDS: SIMETHICONE 80 MG CHEWABLE TABLET PO SCH ×2 (18:18→23:56)
[2018-03-29] MEDS: IBUPROFEN 800 MG TABLET PO PRN (18:18)
--- NOTE | 2018-03-29 19:04 | Progress Note ---
OB PP Progress Note Free Text - Date Date: 03/29/18 - Progress Note Progress Note: POD#0 Doing OK SOB has resolved Cont routine PP care q&a-krb
[2018-03-29] MEDS: HYDROCODONE/APAP 5mg/325mg TABLET PO PRN ×2 (19:08→23:56)
[2018-03-30] MEDS: HYDROCODONE/APAP 5mg/325mg TABLET PO PRN ×4 (06:31→21:24)
[2018-03-30] MEDS: D5LR 1,000 ML IV SCH (06:31)
--- NOTE | 2018-03-30 08:20 | OB/GYN Progress Note ---
OB-PP Progress Note - General POD:: POD1 - Subjective Date: 03/30/18 Lochia: Moderate Pain: controlled Voiding: candelaria still in place Nausea or Vomiting Present: No - Objective Vital Signs: Last Vital Signs Temp 96.5 F L 03/30/18 04:00 Pulse 77 03/30/18 04:00 Resp 18 03/30/18 04:00 BP 106/67 03/30/18 04:00 Pulse Ox 96 03/30/18 04:00 Urine Output: good General: alert and oriented Abdomen: fundus firm Incision: clean, dry, intact Extremities: non-tender Laboratory: Laboratory Results - last 24 hr 03/29/18 03/29/18 03/29/18 12:08 12:08 12:08 WBC 6.5 RBC 3.68 L Hgb 11.5 L Hct 34.1 L MCV 92.7 MCH 31.3 MCHC 33.7 RDW Std Deviation 46.4 Plt Count 179 MPV 11.9 Immature Gran % (Auto) 0.2 Neut % (Auto) 70.6 H Lymph % (Auto) 21.2 L Dooly % (Auto) 6.6 Eos % (Auto) 1.2 Baso % (Auto) 0.2 Neut # (Auto) 4.6 Lymph # (Auto) 1.4 Dooly # (Auto) 0.4 Eos # (Auto) 0.1 Baso # (Auto) 0.0 Abs Immat Gran (auto) 0.01 Turbidity < 20 Sodium 141 Potassium 3.5 L Chloride 108 H Carbon Dioxide 21 L Anion Gap 12 BUN 6.0 L Creatinine 0.4 L GFR Calculation 185 BUN/Creatinine Ratio 15 Glucose 111 H Calculated Osmolality 270 Calcium 9.2 Total Bilirubin 0.30 Icterus Index < 2 AST 19 ALT 14 Alkaline Phosphatase 115 Total Protein 6.4 Albumin 3.6 Globulin 2.8 Albumin/Globulin Ratio 1.3 Specimen Hemolysis < 15 Blood Type O Positive Antibody Screen Negative 03/29/18 03/29/18 14:32 21:02 WBC 6.7 12.4 H D RBC 3.81 L 3.54 L Hgb 11.7 L 10.8 L Hct 35.0 L 32.5 L MCV 91.9 91.8 MCH 30.7 30.5 MCHC 33.4 33.2 RDW Std Deviation 46.8 45.4 Plt Count 177 174 MPV 11.9 11.4 Immature Gran % (Auto) 0.3 Neut % (Auto) 69.8 H Lymph % (Auto) 21.5 L Dooly % (Auto) 7.7 Eos % (Auto) 0.7 Baso % (Auto) 0.0 Neut # (Auto) 4.7 Lymph # (Auto) 1.4 Dooly # (Auto) 0.5 Eos # (Auto) 0.1 Baso # (Auto) 0.0 Abs Immat Gran (auto) 0.02 Turbidity Sodium Potassium Chloride Carbon Dioxide Anion Gap BUN Creatinine GFR Calculation BUN/Creatinine Ratio Glucose Calculated Osmolality Calcium Total Bilirubin Icterus Index AST ALT Alkaline Phosphatase Total Protein Albumin Globulin Albumin/Globulin Ratio Specimen Hemolysis Blood Type Antibody Screen - Assessment Assessment: Repeat C/S - Plan Plan: routine care
[2018-03-30] MEDS: IBUPROFEN 800 MG TABLET PO PRN (09:55)
[2018-03-30] MEDS: SIMETHICONE 80 MG CHEWABLE TABLET PO SCH ×3 (09:56→21:18)
[2018-03-30] MEDS: DOCUSATE CALCIUM 240 MG CAPSULE PO SCH (09:56)
--- NOTE | 2018-03-30 18:00 | Progress Note ---
OB PP Progress Note Free Text - Date Date: 03/30/18 - Progress Note Progress Note: vss af doing well no c/o.
[2018-03-30 21:55] VITALS: RESP 16
[2018-03-31] MEDS: IBUPROFEN 800 MG TABLET PO PRN ×2 (00:07→08:32)
[2018-03-31] MEDS: SIMETHICONE 80 MG CHEWABLE TABLET PO SCH ×3 (03:31→12:57)
[2018-03-31] MEDS: D5LR 1,000 ML IV SCH (03:31)
[2018-03-31] MEDS: HYDROCODONE/APAP 5mg/325mg TABLET PO PRN ×3 (04:34→13:04)
[2018-03-31] MEDS: DOCUSATE CALCIUM 240 MG CAPSULE PO SCH (08:32)
[2018-03-31 11:57] VITALS: BP 110/73; PULSE 76; TEMP 98.2; O2SAT 98
--- NOTE | 2018-03-31 12:36 | Progress Note ---
OB PP Progress Note Free Text - Date Date: 03/31/18 - Progress Note Progress Note: vss af doing well plan dc today f/u Tuesday for rea. q&a
== END 2018-03-31 14:05 | disposition home or self-care (01) | DRG 765 ==
LOC: OBOBS 11:43 → MC 11:45
PROVIDERS: ADMIT Obstetrics & Gynecology; ATTEND Obstetrics & Gynecology

== ENCOUNTER 2018-04-29 07:23 | Inpatient (IN) ==
[2018-04-29] MEDS ORDERED: FentaNYL 100 MCG/2 ML INJECTION IVP ONE (07:37)
[2018-04-29] MEDS ORDERED: KETOROLAC 30 MG/ML INJECTION IVP ONE (07:37)
[2018-04-29] MEDS ORDERED: ONDANSETRON 4 MG/2 ML INJECTION IVP ONE (07:37)
[2018-04-29] MEDS ORDERED: NS 1,000 ML IV ONE ×2 (07:37→11:13)
--- NOTE | 2018-04-29 07:42 | Emergency Department Report ---
Abdominal Pain HPI - General Chief Complaint: Abdominal Pain Stated Complaint: Gallbladder pain, vomiting, sweats Time Seen by Provider: 04/29/18 07:28 - History of Present Illness HPI narrative: 32-year-old female presents with right upper quadrant abdominal pain. She lowered a baby 4 weeks ago. Has had gallstone pain prior to and since the delivery. Has had multiple visits for this. He was most recently seen April [address] Max and MRCP was ordered, returned negative. She's had no fever or chills. States pain is 10 out of 10. Took 2 Percocet this morning at 4 AM and it did not help at all with her pain. She is scheduled to have the gallbladder taken out on Tuesday. - Related Data Home Medications Medication Instructions Recorded Confirmed [id number] 1 cap PO Q4H PRN cap 04/27/18 04/29/18 50 mg-300 mg-40 mg capsule Oxycodone HCl 1 tab PO Q4H PRN 04/29/18 04/29/18 Previous Rx's Medication Instructions Recorded Ibuprofen [Motrin] 800 mg PO Q8H PRN #30 tab 03/31/18 Allergies Allergy/AdvReac Type Severity Reaction Status Date / Time NKDA Allergy Unknown Uncoded 04/29/18 07:29 Review of Systems All systems: reviewed and negative except as stated PFSH Patient Stated Medical History Migraine Yes Heart Murmur Yes Other GI Yes: GALLSTONE Herpes Yes: hx of, no current lesions Human Immunodeficiency Virus ( No HIV) Maternal Gestational Diabetes No Now No Medical History Updates: mild intermittent asthma Surgical History: C-sections only - Social History Smoking status: Never smoker second hand exposure: No Substance use type: does not use Alcohol intake frequency: does not drink Current occupational status: employed 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 [employer] Does patient use chewing tobacco?: No Physical Exam - Limitations Limitations: no limitations - General General appearance: alert - Normal Exams: Head:: Normocephalic without trauma Chest/Respirations:: Clear all zapata, with good airflow, and symmetry bilaterally Cardiovascular:: Regular rate and rhythm, without murmur or gallop, Pulses 2+ all extremities, capillary refill, <2 seconds all extremities Abdomen:: Bowel sounds positive, no hepatosplenomegaly, masses or bruits noted Neurological:: Patient is alert, and oriented, cranial nerves, motor/sensory/ cerebellar, exams w/o gross deficits, to observation - Abdominal Exam Abdominal exam: Present: soft, tenderness (right upper quadrant), diminished bowel sounds. Absent: guarding, rebound, rigidity Course Vital Signs Temperature 98.5 F 04/29/18 07:27 Pulse Rate 72 04/29/18 07:27 Respiratory Rate 20 04/29/18 07:27 Blood Pressure 157/91 H 04/29/18 07:27 Pulse Oximetry 96 04/29/18 07:27 Temperature 98.5 F 04/29/18 07:27 Pulse Rate 72 04/29/18 07:27 Respiratory Rate 20 04/29/18 07:27 Blood Pressure 157/91 H 04/29/18 07:27 Pulse Oximetry 96 04/29/18 07:27 Abdominal Pain - MDM Narrative Medical decision making narrative: Peripheral IV placed with 1 L normal saline bolus. Patient was initially given fentanyl 50 g, Zofran 4 mg and Toradol 30 mg IV. Sepsis labs as well as lipase were ordered. Abdominal x-ray also obtained. Abdominal x-ray shows nonspecific bowel gas pattern. Chest x-ray negative. However patient does have white count 10.6 with significant left shift. Bilirubin, liver enzymes elevated. Lipase greater than 8000. She did require another 1 mg of Dilaudid and 50 g of fentanyl to control pain. Also required Phenergan [address] Nelson was consulted and would like the patient placed in hospital for gallstone pancreatitis. NG tube placement, nothing by mouth with bowel rest and pain management until symptoms resolve enough for laparoscopic cholecystectomy. - Differential Diagnosis Differential diagnosis: Likely: abdominal pain, acute appendicitis, constipation , diverticulitis, gastroenteritis, pancreatitis, small bowel obstruction - Medical Records Attestation: I reviewed the patient's medical records. - Lab Data Attestation: I reviewed the patient's lab results. Result diagrams: 05/02/18 05:35 05/03/18 04:41 - Radiology Data Attestation: I reviewed the patient's radiology results. Disposition Clinical Impression: Gallstone pancreatitis Disposition: To [facility] Condition: Improved Time of Disposition: 15:31 - Seen By: physician
[2018-04-29] MEDS: SALINE FLUSH 10ml SYRINGE IVF PRN ×3 (07:53→11:15)
[2018-04-29] MEDS ORDERED: PROMETHAZINE 25 MG INJECTION IVP ONE (09:23)
[2018-04-29] MEDS ORDERED: HYDROMORPHONE 2 MG/ML INJECTION IVP ONE (09:23)
[2018-04-29] MEDS ORDERED: FentaNYL 100 MCG/2 ML INJECTION IVP PRN (11:07)
[2018-04-29] MEDS: NS 1,000 ML IV SCH ×3 (12:06→22:27)
--- NOTE | 2018-04-29 12:39 | History and Physical ---
HISTORY OF PRESENT ILLNESS This patient is 32 years old. This patient experienced the acute onset of upper abdominal pain on 02/20/2018. The patient did call an ambulance and was transported to [facility] by the ambulance service. The patient was admitted to [facility]. Laboratory studies at [facility] did show a serum lipase of 13,519. Hemoglobin was 10.5. Total bilirubin was 0.3. Alkaline phosphatase was 100. Both of these were normal. AST was mildly elevated at 84. ALT was mildly elevated at 44. Repeat serum lipase later in the day was 8834. The patient did undergo a gallbladder sonogram at the time of admission to the hospital. This did show mild gallbladder wall thickening. The gallbladder sonogram did show cholelithiasis. There was also some focal fatty infiltration of the liver. It was thought at this time that the patient had acute gallstone pancreatitis. The patient was 32 weeks at this time. The gallstone pancreatitis did resolve with nonoperative medical treatment including bowel rest, intravenous fluid administration, analgesics and antiemetics during this hospitalization. The patient was hospitalized for four or five days. The patient did not undergo laparoscopic cholecystectomy during this hospitalization because she was 32 weeks . The plan was to have the patient deliver and then undergo a laparoscopic cholecystectomy operation. The patient did have a CMP performed on 03/29/2018 at [facility]. Total bilirubin was 0.3 at this time. AST was 19. ALT was 14. Alkaline phosphatase was 115. All liver function tests were normal at this time. The patient did undergo a repeat low transverse section operation with delivery of her on 03/29/2018 at [facility]. The patient did begin having right upper quadrant abdominal pain about one week after this. She continued to have right upper quadrant abdominal pain since then. The patient states that her right upper quadrant abdominal pain has been worse since 04/23/2018. The patient had an office visit with Dr. Nelson on 04/27/2018 to discuss having her gallbladder removed. The patient was having right upper quadrant abdominal pain. The patient did have laboratory studies performed at [facility] on 04/27/2018. White blood cell count was 4900. Hemoglobin was 13.2. Hematocrit was 40.3. Total bilirubin was 1.2. Alkaline phosphatase was 178. ALT was 797. ALT was 626. Serum lipase was 93 at this time which was normal. The elevated liver function tests were noted at this time. There was concern about whether the patient might have common duct stones at this time. The patient was scheduled for an MRCP for the following day. The patient did undergo an MRCP on 04/28/2018 at [facility] at [place], [place]. This was at one of the [facility] facilities. This MRCP did show dilation of the common bile duct up to 12 mm without any identified filling defect to suggest a common bile duct stone. There was no evidence of any biliary stricture. There was some mild left intrahepatic bile duct dilation. Pancreatic ducts appeared normal at this time. The MRCP did show cholelithiasis with [id number] gallbladder distention. There was no pericholecystic fluid. There were no findings to suggest acute cholecystitis. The patient did have a CMP repeated on 04/28/2018. Total bilirubin was 2.3. Alkaline phosphatase was 171. AST was 431. ALT was 670. The patient states that her abdominal pain did become much worse during the night of 04/28/2018 and the morning of 04/29/2018. The patient states that her pain was 50 times worse at this time than it had been 24 hours earlier. The patient also began to develop vomiting on the morning of 04/29/2018. She did vomit two times during the morning of 04/29/2018. Her abdominal pain was much worse. The patient was having diaphoresis. The patient did come to [facility] Emergency Room for evaluation on the morning of 04/29/2018 because of worsening of her symptoms. The patient was found at [facility] Emergency Room to have a serum lipase of 22,832. Plasma lactate was 1.1. White blood cell count was 10,600. Differential for the white blood cell count showed 80% neutrophils and 4% bands. Total bilirubin was 3.3. AST was 367. ALT was 663. Alkaline phosphatase was 200. The patient is thought at this time to have acute gallstone pancreatitis. The patient is being admitted to the hospital for treatment of acute gallstone pancreatitis. PAST MEDICAL HISTORY PREVIOUS OPERATIONS 1. section on 05/17/[address] Wilmer Jordan at [facility] at [place], [place]. 2. section on 05/29/[address] Wilmer Jordan at [facility] at [place], [place]. 3. Repeat low transverse section and modified tubal ligation on 03/29/[address] Wilmer Jordan at [facility] at [place], [place]. CURRENT MEDICATIONS 1. [place] 5/325 mg one to two tablets p.o. every four hours p.r.n. pain. 2. Ibuprofen 800 mg p.o. every eight hours p.r.n. pain. ALLERGY HISTORY The patient has no known allergies to medications. PHYSICAL EXAMINATION VITAL SIGNS: Temperature is 98.5 degrees Fahrenheit. Pulse is 72. Respiratory rate is 20. Blood pressure is 157/91. Oxygen saturation is 96% on room air. Height is 1.55 meters. Weight is 98.1 kg. BMI is 40.9 kg/m2. HEENT: No abnormality is noted. NECK: No neck masses. CHEST: Lung sounds are clear. HEART: Regular rhythm. No murmurs. BREASTS: Not examined. ABDOMEN: The patient does have tenderness across the upper abdomen. The abdomen is soft. Bowel sounds are hypoactive. The patient does have a recent Pfannenstiel abdominal incision scar. RECTUM: Exam deferred. EXTREMITIES: No abnormality is noted. LABORATORY DATA White blood cell count is 10,600 with 80% neutrophils and 4% bands and 12% lymphocytes. Hemoglobin is 14.7. Hematocrit is 44.5. Total bilirubin is 3.3. AST is 367. ALT is 663. Alkaline phosphatase is 200. Serum lipase is 22, 832. IMPRESSION 1. Acute gallstone pancreatitis. 2. Chronic cholecystitis and cholelithiasis. 3. BMI of 40.9. PLAN Admit patient to [facility] for medical treatment of acute gallstone pancreatitis. The patient will be kept n.p.o. for bowel rest. The patient will be given intravenous fluids. The patient will be given analgesics and antiemetics for patient comfort. Serum lipase and liver function tests will be monitored. The patient can undergo a laparoscopic cholecystectomy after the acute gallstone pancreatitis has resolved. MTDD
[2018-04-29] MEDS: ONDANSETRON 4 MG/2 ML INJECTION IVP PRN ×2 (13:27→20:08)
[2018-04-29] MEDS: HYDROMORPHONE 2 MG/ML INJECTION IVP PRN ×4 (13:32→22:25)
--- NOTE | 2018-04-29 13:38 | Consult Note ---
Consult Information - Data of Consult Consult date: 04/29/18 Requesting Physician: Moe Nelson MD - Consult Narrative Reason for consult: Medical management History of present illness: Guerline Jimenez is a 32-year-old woman who is 4 weeks status post , which was done on 03/29/18. She is not breast-feeding. She has had problems with gallstone pancreatitis in January,. Her symptoms resolved with medical management, and she was to follow-up with Dr. Nelson after delivery. She states that since that time she has had some intermittent episodes of epigastric pain. She had an MRCP on 04/28/18 which showed dilation of the common bile duct up to 12 mm without any common bile duct stone identified. However, over the last week her pain has been more constant. Her pain became markedly worse in the evening of 04/28/18 and was not responding to her typical pain medication. She was having problems taking deep breaths because of abdominal discomfort. Her pain started in the right upper quadrant and migrated towards the left upper quadrant and then down into the left lower quadrant. She began having nausea with some vomiting. She is also feeling sweaty and hot. She denies any diarrhea or constipation. She denies any hematemesis or hematochezia. She does note that previously she had some stinging with urination but that has resolved. However, over the last week her urine has been very dark in color. She has had problems sleeping over the last week because of her increasing abdominal pain. She has also felt weak, dizzy, and utterly exhausted. She denies known fever. She denies any upper respiratory symptoms such as congestion or sore throat. She denies headaches. She denies any paresthesias. She presented to the emergency department in the morning of 04/29/18 because of worsening symptoms. Her lipase was 22,832, compared to being 93 on 04/27/18. Her LFTs on 04/27/18 were: Total bili 1.2, alkaline phosphatase 178, ALT 77, ALT 626. In the ER on 04/29/18, she had a total bili of 3.3, AST 367, ALT 663, alkaline phosphatase 200. Her white count was 10.6 with 80% neutrophils. Hemoglobin was normal at 14.7. Her electrolytes were stable. She is given analgesics and antiemetics as well as IV fluids in the emergency department. Dr. Nelson was notified, and the patient was admitted under Dr. Nelson's service with consultation to the hospitalist service. Past Medical History Medical History Updates: mild intermittent asthma. Obesity, BMI 41.5. Gallstone pancreatitis. Heart murmur Surgical History: C-sections 3, 2006, 2012, 2018. Last she also had a tubal ligation by Dr. Jordan. Epidural for back pain, 2016. [place] teeth, 2001 Family History Updates: Mother - thyroid problems, COPD/emyphysema. Father - HTN. MGM - thyroid problems, MS. MGF - in his 70s of liver failure. PGM - in her 80s. She had DM and dementia. PGF - in his 80s of heart disease. He also had DM. Brother - healthy. Son - leukemia. Family History: As Above - Social History Smoking status: Never smoker Substance use type: does not use Alcohol intake frequency: does not drink Does patient use chewing tobacco?: No Review of Systems All systems PM: 10-point ROS was reviewed, no additional remarkable complaints except - Constitutional Constitutional: Present: as per HPI, night sweats - EENMT Eyes: Absent: change in vision Nose: Present: as per HPI Mouth/Throat: Present: as per HPI - Cardiovascular Cardiovascular: Present: as per HPI Vascular: Absent: pedal edema - Respiratory Respiratory: Present: as per HPI - Gastrointestinal Gastrointestinal: Present: as per HPI - Genitourinary Genitourinary: Present: as per HPI Menstruation: as per HPI - Musculoskeletal Musculoskeletal: Present: back pain - Integumentary/Breasts Integumentary: Present: rash (chigger bites to lower legs) - Neurological Neurological: Present: dizziness, weakness. Absent: abnormal gait, confusion, focal weakness, frequent falls, numbness, paresthesias - Psychiatric Psychiatric: Absent: anxiety, depression (no depression) - Endocrine Endocrine: Absent: palpitations - Hematologic/Lymphatic Hematologic/Lymphatic: Absent: easy bruising - Allergic/Immunologic Allergic/Immunologic: Absent: seasonal rhinorrhea Medications Home Medications Medication Instructions Recorded Confirmed Type Ibuprofen [Motrin] 800 mg PO Q8H PRN #30 tab 03/31/18 04/29/18 Rx casyuvljvb-xfrrwdnilyhcc-suppfgzp 1 cap PO Q4H PRN cap 04/27/18 04/29/18 History 50 mg-300 mg-40 mg capsule Oxycodone HCl 1 tab PO Q4H PRN 04/29/18 04/29/18 History Allergies Allergy/AdvReac Type Severity Reaction Status Date / Time NKDA Allergy Unknown Uncoded 04/29/18 07:29 Exam Vital Signs: Temperature 97.8 F 04/29/18 11:39 Pulse Rate 66 04/29/18 11:39 Respiratory Rate 18 04/29/18 11:39 Blood Pressure 117/70 04/29/18 11:39 Pulse Oximetry 96 04/29/18 11:39 - Constitutional Present: no acute distress, well nourished, well developed - Routine HEENT Exam Head: Present: normocephalic Eye: Present: PERRL. Absent: conjunctival icterus, scleral injection ENT: Present: mucous membranes moist - Routine Neck Exam Present: supple. Absent: lymphadenopathy - Routine Respiratory Exam Present: CTA bilaterally - Routine Cardiovascular Exam Present: RRR, S1, S2, murmur (3/6 systolic) - Routine Abdominal Exam Present: soft, tenderness (RUQ, epigastric, LUQ, LLQ). Absent: normoactive bowel sounds (hypoactive) - Routine Extremities Exam Present: no edema - Routine Skin Exam Present: intact, dry, warm Comments: scattered mild abrasions to ankles - Routine Neurological Exam Present: alert, oriented X3, CN II-XII intact, moving all extremities, vision grossly intact, hearing grossly intact, normal speech. Absent: sensory deficit , motor deficit, altered mental status, facial asymmetry - Routine Psychiatric Exam Present: normal affect, normal thought process, cooperative Results - Labs CBC & Chem 7: 04/29/18 07:51 04/29/18 07:51 Assessment and Plan (1) Gallstone pancreatitis Current visit: Yes Status: Acute Assessment and Plan: Assessment Gallstone pancreatitis Abnormal liver enzymes Cholelithiasis Mild intermittent asthma , s/p 03/29/18 Heart murmur Obesity, BMI >40 Plan Agree with symptomatic management of gallstone pancreatitis, per attending. Dilaudid and Zofran have been helpful in managing her pain and nausea. Diet: NPO. Continue IVF. UA was done in the ED - negative for UTI but did show 2+ bilirubin. Trend LFTs; lipase; WBC. Albuterol PRN. Encourage IS and activity as tolerated. Will discuss findings and further orders with attending. Thank you for this consult. Prior hospital records were reviewed. DVT Prophylaxis: SCD's Resuscitation Status: Full Code - Physician Narrative Physician: Sakina Lutz MD Narrative: Date: 04/29/18 Time: 2200 I have independently evaluated and examined this patient. I reviewed the chart, the patient's history, and the [employer]/PA's documented findings as above. We discussed and formulated the assessment and plan as above with additions as below: Guerline is known from admission for gallstone pancreatitis in January of this year. She reports intermittent problems with abdominal pain associated with gallstones in recent weeks on has previously had normal liver enzymes (or minimally elevated in January) until 04/27 when she was seen for preoperative assessment. MRCP was subsequently obtained revealing dilated common duct without filling defect to suggest common duct stone. Pancreatic duct was reported to be normal and moderate gallbladder distention with cholelithiasis was reported. Pain increased dramatically overnight with finding of elevated lipase. Of note AST has dropped from 797 on 04/27-367 this morning; ALT has been relatively stable with only minor increase in alkaline phosphatase from 178- 200. Bilirubin has increased from 1.2-3.3 in conjunction with patient having minimal oral intake during the same time. Uncomfortable appearing female, splints with inspiratory effort Breath sounds clear Abdomen diffusely tender but soft, sparse bowel sounds Repeat liver enzymes and lipase obtained this evening demonstrates significant improvement from early today with lipase currently 8178, bilirubin 2.6- dominantly unconjugated, and declining AST, ALT, and alkaline phosphatase. Improving liver function compatible with recently obstructed common duct/ probable passed gallstone. Acute pancreatitis-chemically improving, reassess clinical symptoms in a.m. Continue supportive care with fluids, antiemetics, narcotics. Laparoscopic cholecystectomy as soon as status permits. Chest x-ray/KUB is reviewed by myself-no active pulmonary disease, nonspecific bowel gas pattern, constipation. Discussed with Dr. Nelson; recent data reviewed. Hospital Course Summary Disclaimer: The visit summary below is not to be considered part of the above Progress Note. Hospital Course: 04/29/18 Agree with symptomatic management of gallstone pancreatitis, per attending. Dilaudid and Zofran have been helpful in managing her pain and nausea. Diet: NPO. Continue IVF. UA was done in the ED - negative for UTI but did show 2+ bilirubin. Trend LFTs; lipase; WBC. Albuterol PRN. Encourage IS and activity as tolerated.
[2018-04-29] MEDS ORDERED: ALBUTEROL 2.5mg/0.5ml (0.5%) NEB AEROSOL PRN (13:49)
[2018-04-29] MEDS: PROMETHAZINE 25 MG INJECTION IVP PRN (15:33)
[2018-04-30] MEDS: NS 1,000 ML IV SCH ×2 (03:21→08:57)
[2018-04-30] MEDS: APAP/ASA/Caffeine 1 TAB PO PRN (08:57)
[2018-04-30] MEDS: Oxycodone *IR* 5 MG TABLET PO PRN ×2 (10:20→13:02)
[2018-04-30] MEDS: D5-1/2NS with KCL 20mEq 1,000 ML IV SCH ×2 (10:20→19:26)
--- NOTE | 2018-04-30 10:22 | XRay Report ---
Indication: pain, gallstones PROCEDURE: XR abdomen 2V: Encounter: Initial Comparison: None Findings: Bowel gas pattern is nonobstructive and nonspecific. Lung bases are grossly clear. No free air. Moderate to large amount of stool in the colon. Densities in the colon probably related to ingested medications. Impression: Nonobstructive nonspecific bowel gas pattern. .
--- NOTE | 2018-04-30 10:23 | XRay Report ---
INDICATION: abd pain, PROCEDURE: CHEST 2-VIEWS UPRIGHT (PA & LAT) Encounter: Initial COMPARISON: None FINDINGS: The lungs are clear without evidence of focal abnormal airspace opacity. There is no pleural effusion or pneumothorax. The heart size, mediastinal contours and pulmonary vascularity are within normal limits. There is no significant skeletal abnormality. IMPRESSION: No acute cardiopulmonary disease. .
--- NOTE | 2018-04-30 16:40 | Progress Note ---
- Date 04/30/18 Subjective: Guerline reports feeling significantly improved this morning. She has not needed IV pain medication since yesterday evening although did take oral pain meds earlier this morning. She denies nausea or vomiting and is hopeful that her gallbladder can be removed tomorrow to avoid recurrent pancreatitis/ cholecystitis. She has minor discomfort with inspiratory effort but denies cough or sputum production; deep inspiration is clearly uncomfortable. She was transiently lightheaded when she first at this morning but since that time has been ambulating without difficulty or lightheadedness. She is voiding without difficulty. She's encouraged by drop in lipase and liver enzymes thus far. Objective Vital signs: Temperature 98.5 F 04/30/18 16:18 Pulse Rate 70 04/30/18 16:18 Respiratory Rate 20 04/30/18 16:18 Blood Pressure 110/60 04/30/18 16:18 Pulse Oximetry 98 -RA 04/30/18 16:18 NAD, alert Sclera anicteric, conjunctiva clear Respirations nonlabored, good airflow, breath sounds clear Regular rhythm, S1-S2 Abdomen soft, mildly tender upper abdomen and left lower quadrant, bowel sounds present +1 edema 4 extremities-hands puffy Height/Weight/BMI: Weight 103.8 kg Results - Labs CBC & Chem 7: 04/30/18 04:32 04/30/18 04:32 Labs: Lipase 2651 Bilirubin 1.0, AST 119, ALT 352, alkaline phosphatase 138-all improved from prior days Assessment and Plan (1) Gallstone pancreatitis Current visit: Yes Status: Acute Assessment and Plan: Assessment Gallstone pancreatitis Abnormal liver enzymes Cholelithiasis Mild intermittent asthma , s/p 03/29/18 Heart murmur Obesity, BMI >40 Plan: Likely/chemically improving, tolerating ice chips. Course strongly suggests transient obstruction of common duct no longer present based on resolving enzymes and MR imaging revealing ductal dilatation but no filling defect. Recurrent biliary colic in the recent past and during late . Hopefully we'll be able to proceed to laparoscopic cholecystectomy in the next 1 -2 days. - Physician Narrative Narrative: Date: 04/30/18 Time: 1636 Hospital Course Summary Disclaimer: The visit summary below is not to be considered part of the above Progress Note. Hospital Course: 04/29/18 Agree with symptomatic management of gallstone pancreatitis, per attending. Dilaudid and Zofran have been helpful in managing her pain and nausea. Diet: NPO. Continue IVF. UA was done in the ED - negative for UTI but did show 2+ bilirubin. Trend LFTs; lipase; WBC. Albuterol PRN. Encourage IS and activity as tolerated. 04/30/18 Likely/chemically improving, tolerating ice chips. Course strongly suggests transient obstruction of common duct no longer present based on resolving enzymes and MR imaging revealing ductal dilatation but no filling defect. Recurrent biliary colic in the recent past and during late . Hopefully we'll be able to proceed to laparoscopic cholecystectomy in the next 1 -2 days.
[2018-05-01] MEDS: HYDROMORPHONE 2 MG/ML INJECTION IVP PRN ×5 (04:06→22:26)
[2018-05-01] MEDS: ONDANSETRON 4 MG/2 ML INJECTION IVP PRN ×3 (04:11→19:29)
[2018-05-01] MEDS: D5-1/2NS with KCL 20mEq 1,000 ML IV SCH ×3 (04:43→13:35)
--- NOTE | 2018-05-01 09:08 | Progress Note ---
DATE 04/30/2018 HISTORY OF PRESENT ILLNESS The patient is feeling better than she did at the time of admission yesterday. She is having less abdominal pain. PHYSICAL EXAMINATION VITAL SIGNS: Temperature is 97.9 degrees Fahrenheit oral. Pulse is 75. Respiratory rate is 20. Blood pressure is 124/78. Oxygen saturation is 94% on room air. ABDOMEN: The abdomen is soft. There is less abdominal tenderness at the upper abdomen today than there was yesterday. The patient is most tender at the left upper quadrant. LABORATORY DATA White blood cell count is 7900 with 1 band. Hemoglobin is 11.6. Hematocrit is 35.9. Total bilirubin is 1. AST is 119. ALT is 352. Alkaline phosphatase is 138. Serum lipase is 2651. Serum sodium is 144. Serum potassium is 3.6. Serum creatinine is 0.5. IMPRESSION 1. Acute gallstone pancreatitis which is improving. PLAN Continue current nonoperative treatment of acute gallstone pancreatitis with bowel rest, intravenous fluid administration, analgesics and antiemetics. I did change IV fluids from normal saline at 200 mL/hr to D5 one-half normal saline with 20 KCl per liter at 125 mL/hr. Laboratory tests will be rechecked tomorrow. The patient continues to have analgesics and antiemetics available for comfort. Sequential compression devices are being used for deep venous thrombosis prophylaxis. [facility]
--- NOTE | 2018-05-01 09:25 | Progress Note ---
- Date 05/01/18 Subjective: Patient is seen resting in bed this morning. She reports she is feeling better. She continues to have some pain in her abdomen. States yesterday afternoon and evening she was feeling very good, but overnight she had increased pain. States the hardest thing is being nothing by mouth. She is hopeful to have surgery today, but realizes it may be another day or 2. She was reassured that her liver enzymes and lipase are improving. No chest pain or shortness of breath, no fever or chills. Objective Vital signs: Temperature 96.6 F L 05/01/18 08:07 Pulse Rate 60 05/01/18 08:07 Respiratory Rate 16 05/01/18 09:07 Blood Pressure 119/69 05/01/18 08:07 Pulse Oximetry 95 05/01/18 08:07 Height/Weight/BMI: Weight 103 kg - Constitutional Present: no acute distress, well nourished, well developed - Routine HEENT Exam Head: Present: normocephalic, atraumatic - Routine Respiratory Exam Present: CTA bilaterally. Absent: wheezes - Routine Cardiovascular Exam Present: RRR, no murmur - Routine Abdominal Exam Present: soft, normoactive bowel sounds, tenderness (left upper quadrant/right upper quadrant), non distended - Routine Extremities Exam Present: no edema, normal capillary refill - Routine Skin Exam Present: dry, warm - Routine Neurological Exam Present: alert, oriented X3 - Routine Lymphatic Exam Lymphatic: Absent: adenopathy - Routine Psychiatric Exam Present: normal affect, cooperative Results - Labs CBC & Chem 7: 05/01/18 04:00 05/01/18 04:00 Labs: Laboratory Tests 05/01/18 04:00 AST 64 H D ALT 263 H Lipase 316 H D Assessment and Plan (1) Gallstone pancreatitis Current visit: Yes Status: Acute Assessment and Plan: Assessment Gallstone pancreatitis Abnormal liver enzymes Cholelithiasis Mild intermittent asthma , s/p 03/29/18 Heart murmur Obesity, BMI >40 Plan: Continues to improve. Tolerating ice chips. Dr. Nelson planning on surgery as soon as labs normalize. LFT's and lipase continue to trend down. Potassium just slightly low - has KCl running in IVF's. Monitor. DVT Prophylaxis: SCD's GI Prophylaxis: Pepcid Resuscitation Status: Full Code - Physician Narrative Physician: Sakina Lutz MD Narrative: Date: 05/01/18 Time: 1440 I have independently evaluated and examined this patient. I reviewed the chart, the patient's history, and the MARKET RISK ANALYST/PA's documented findings as above. We discussed and formulated the assessment and plan as above with additions as below: Guerline reports slight increased achiness along her flanks-especially on the left; minimal nausea and no emesis. Abdomen soft with mild tenderness greatest along left lateral abdomen, no peritoneal signs, bowel sounds present Sodium and potassium both drifting down slowly Significant improvement in lipase itches nearly normal and liver enzymes. Bilirubin and alkaline phosphatase have normalized. Fluids changed to D5NS w/ 20KCl, 20KPhos Anticipate laparoscopic cholecystectomy in near future. Pepcid initiated IV Hospital Course Summary Disclaimer: The visit summary below is not to be considered part of the above Progress Note. Hospital Course: 04/29/18 Agree with symptomatic management of gallstone pancreatitis, per attending. Dilaudid and Zofran have been helpful in managing her pain and nausea. Diet: NPO. Continue IVF. UA was done in the ED - negative for UTI but did show 2+ bilirubin. Trend LFTs; lipase; WBC. Albuterol PRN. Encourage IS and activity as tolerated. 04/30/18 Likely/chemically improving, tolerating ice chips. Course strongly suggests transient obstruction of common duct no longer present based on resolving enzymes and MR imaging revealing ductal dilatation but no filling defect. Recurrent biliary colic in the recent past and during late . Hopefully we'll be able to proceed to laparoscopic cholecystectomy in the next 1 -2 days. 05/01/18 Continues to improve. Tolerating ice chips. Dr. Nelson planning on surgery as soon as labs normalize. LFT's and lipase continue to trend down. Potassium just slightly low - has KCl running in IVF's. Monitor.
[2018-05-01] MEDS: PROMETHAZINE 25 MG INJECTION IVP PRN ×2 (12:21→22:27)
[2018-05-01] MEDS ORDERED: PANTOPRAZOLE 40 MG INJECTION IVP SCH (15:00)
[2018-05-01] MEDS: FAMOTIDINE PB 20 MG/50 ML BAG IV SCH (15:38)
--- NOTE | 2018-05-01 18:59 | Progress Note ---
DATE 05/01/2018 HISTORY OF PRESENT ILLNESS The patient had more upper abdominal pain this morning and needed to take some intravenous Dilaudid. The abdominal pain has been less this afternoon and the patient has not needed any analgesics this afternoon. The patient states that her pain continues to be most prominent at the left upper quadrant of the abdomen. PHYSICAL EXAM VITAL SIGNS: Temperature is 98.8 degrees Fahrenheit oral. Pulse is 64. Respiratory rate is 16. Blood pressure is 129/83. Oxygen saturation is 98% on room air. ABDOMEN: The abdomen is soft. The patient does have some left upper quadrant abdominal tenderness. This is mild tenderness at this time. LABORATORY DATA White blood cell count is 7100 with no bands. Hemoglobin is 11.7. Hematocrit is 35.9. Serum sodium is 141. Serum potassium is 3.5. Serum chloride is 113. Serum creatinine is 0.4. Total bilirubin is 0.6. AST is 64. ALT is 263. Alkaline phosphatase is 125. Serum lipase is 316. IMPRESSION 1. Acute gallstone pancreatitis which is clinically improving with nonoperative treatment. 2. Mild hypokalemia. PLAN 1. Recheck serum lipase and liver function tests tomorrow morning. 2. The patient is scheduled to undergo multiport robotic laparoscopic cholecystectomy tomorrow morning. [facility]
[2018-05-01] MEDS: POTASSIUM CHLORIDE INJ 20 MEQ, POTASSIUM PHOSPHATE (mEq) 20 MEQ in D5NS 1,000 ML IV SCH (22:22)
[2018-05-02] MEDS: FAMOTIDINE PB 20 MG/50 ML BAG IV SCH ×2 (02:02→15:24)
[2018-05-02] MEDS ORDERED: INDOCYANINE GREEN 25mg INJECTION ONE (06:50)
[2018-05-02] MEDS: LR 1,000 ML IV SCH ×3 (06:56→11:19)
--- NOTE | 2018-05-02 07:03 | Anesthesia Preoperative Report ---
Anesthesia Preoperative Record - Date and Time Date: 05/02/18 Preoperative Diagnosis: Acute gallstone pancreatitis Proposed Procedure: Robotic lap neda NPO Since Date: 05/02/18 NPO Since Time: 00:00 Allergies/Adverse Reactions: Allergies Allergy/AdvReac Type Severity Reaction Status Date / Time NKDA Allergy Unknown Uncoded 04/29/18 07:29 - Vital Signs Vital Signs: Temperature 98.7 F 05/02/18 06:47 Pulse Rate 67 05/02/18 06:47 Respiratory Rate 22 05/02/18 06:47 Blood Pressure 138/83 05/02/18 06:47 Pulse Oximetry 97 05/02/18 06:47 Height and Weight: Height 1.55 m Weight 103 kg - Medications Inpatient Medications: Current Medications Acetaminophen/Aspirin/Caffeine (Excedrin Xs) 2 tab PO Q6HR PRN PRN Reason: Headache Last Admin: 04/30/18 08:57 Dose: 2 tab Albuterol Sulfate (Proventil Neb (0.5%)) 2.5 mg AEROSOL RTQID PRN Hydromorphone HCl (Dilaudid) 0.5 - 1 mg IVP Q1H PRN PRN Reason: Pain Last Admin: 05/01/18 22:26 Dose: 1 mg Potassium Chloride 20 meq/Potassium Phosphate 20 meq/Dextrose/Sodium Chloride 1 ,014.5455 mls @ 100 mls/hr IV .Q10H9M ESTELLA Last Infusion: 05/02/18 06:27 Dose: 0 mls/hr Famotidine/Sodium Chloride (Pepcid Premix) 20 mg in 50 mls @ 100 mls/hr IV Q12H ESTELLA Last Infusion: 05/02/18 02:33 Dose: Infused Lactated Ringer's (Lactated Ringers) 1,000 mls @ 50 mls/hr IV .Q20H ESTELLA Last Admin: 05/02/18 06:56 Dose: 50 mls/hr Ondansetron HCl (Zofran) 4 - 8 mg IVP Q6H PRN PRN Reason: Nausea &/or vomiting Last Admin: 05/01/18 19:29 Dose: 4 mg Oxycodone HCl (Roxicodone *Ir*) 5 - 10 mg PO Q3H PRN PRN Reason: Pain Promethazine HCl (Phenergan Inj) 12.5 - 25 mg IVP Q6H PRN PRN Reason: Nausea &/or vomiting Last Admin: 05/01/18 22:27 Dose: 25 mg Sodium Chloride (Iv Flush) 10 - 80 ml IVF PRN PRN PRN Reason: Flushing Last Admin: 04/29/18 11:15 Dose: 10 ml Home Medications: Home Medications Medication Instructions Recorded Confirmed Type Ibuprofen [Motrin] 800 mg PO Q8H PRN #30 tab 03/31/18 04/29/18 Rx oexnezeuxi-rqphkoqwqlltg-tpyohbol 1 cap PO Q4H PRN cap 04/27/18 04/29/18 History 50 mg-300 mg-40 mg capsule Oxycodone HCl 1 tab PO Q4H PRN 04/29/18 04/29/18 History Is Patient on Beta Julio César?: No - Medical History Respiratory: DENIES: Sleep Apnea Cardiovascular: Reports: Heart Murmur Gastrointestional: Reports: Morbid Obesity, Other (GALLSTONE) Neuro/Musculoskeletal: Reports: Headaches Other History: DENIES: Now - Surgical History Reproductive Surgery/Treatment: Reports: Section Anesthesia Reactions: None Hx Family Anesthesia Reaction: No History of Motion Sickness: No - Social History Smoking Status: Never smoker Hx Chewing Tobacco Use: No Second Hand Exposure: No Substance Use Type: does not use Alcohol Intake Frequency: does not drink - Pertinent Findings Laboratory: CBC and BMP 05/02/18 05:35 05/02/18 05:35 BMP 05/02/18 05:35 Sodium 144 Potassium 3.5 L Chloride 110 H Carbon Dioxide 26 BUN 3.0 L Creatinine 0.5 L Glucose 95 Calcium 8.2 L Liver Function 05/02/18 Range/Units 05:35 Total Bilirubin 0.50 (0.20-1.30) MG/DL AST 63 H (14-36) U/L ALT 214 H (1-35) U/L Alkaline Phosphatase 108 (38-126) U/L Albumin 3.3 L (3.5-5.0) g/dL - Physical Exam Respiratory Exam: Present: lungs clear Cardiovascular Exam: Present: regular rate and rhythm - Airway Assessment Mallampati Score: II TMD: 2 Fingerbreadths Neck Extension: fair Overall Assessment: may be difficult mask vent, may be difficult intubation - ASA ASA Score: 3 - Plan Anesthesia: General Inhalation Gases - Discussion Discussion: Discussed risks/options/alternatives of anesthesia and questions answered. Patient consents. Nursing pain assessment noted. Attestation Statement: Prior to the delivery of any anesthetic medication, I examined the patient, developed the plan, obtained the patient's consent and discussed the risk and benefits of the procedure with the patient/guardian.
[2018-05-02] MEDS ORDERED: NOZIN NASAL SWAB NAS ONE (07:15)
[2018-05-02] MEDS ORDERED: CEFAZOLIN 1 G INJECTION IVP ONE (07:15)
[2018-05-02] MEDS ORDERED: SALINE FLUSH 10ml SYRINGE IV ONE (07:20)
[2018-05-02] MEDS ORDERED: INDOCYANINE GREEN 25mg INJECTION IVP ONE (07:20)
[2018-05-02] MEDS ORDERED: BUPIVACAINE 0.25% (2.5mg/ml) PF 30ml INJECTION ID ONE (07:20)
[2018-05-02] MEDS ORDERED: PROPOFOL 500 MG/50 ML VIAL ONE (07:22)
[2018-05-02] MEDS ORDERED: SUCCINYLCHOLINE 20mg/mL 10mL INJECTION ONE (07:23)
[2018-05-02] MEDS ORDERED: ROCURONIUM 50 MG/5 ML INJECTION IVP ONE ×2 (07:23→08:30)
[2018-05-02] MEDS ORDERED: FentaNYL 250 MCG/5 ML INJECTION ONE ×2 (07:54→08:34)
[2018-05-02] MEDS ORDERED: DEXAMETHASONE 4 MG/ML INJECTION ONE (07:55)
[2018-05-02] MEDS ORDERED: ONDANSETRON 4 MG/2 ML INJECTION ONE (07:55)
[2018-05-02] MEDS ORDERED: HYDRALAZINE 20 MG/ML INJECTION ONE (08:28)
[2018-05-02] MEDS ORDERED: ONDANSETRON 4 MG/2 ML INJECTION IVP PRN (08:43)
[2018-05-02] MEDS ORDERED: METOCLOPRAMIDE 10mg/2ml INJECTION IVP PRN (08:43)
[2018-05-02] MEDS ORDERED: DESFLURANE 240ml LIQUID IH ONE (09:03)
[2018-05-02] MEDS ORDERED: SEVOFLURANE 250ml LIQUID IH ONE (09:03)
--- NOTE | 2018-05-02 09:44 | General Surgery Procedure Note ---
Date of Procedure: 05/02/18 Surgeon: Omar Postoperative Diagnosis: Gallstone pancreatitis Procedure: Multiport robotic laparoscopic cholecystectomy Estimated Blood Loss: See Anesthesia Record.
[2018-05-02] MEDS ORDERED: SUGAMMADEX 200mg/2ml INJECTION IVP ONE (09:54)
[2018-05-02] MEDS: HYDROMORPHONE 2 MG/ML INJECTION IVP PRN ×3 (10:05→10:42)
[2018-05-02] MEDS ORDERED: SCOPOLAMINE 1mg/3 days PATCH (Eq. 1.5 Patch) TD ONE (10:37)
[2018-05-02] MEDS: PROMETHAZINE 25 MG INJECTION IVP PRN ×2 (11:08→20:11)
[2018-05-02] MEDS ORDERED: IBUPROFEN 200 MG TABLET PO PRN (11:57)
--- NOTE | 2018-05-02 13:08 | Anesthesia Postoperative Note ---
- Date and Time Date: 05/02/18 Time: 10:20 - Status Patient Participated in Evaluation: Patient Participated in Person Vital Signs: Temperature 97.9 F 05/02/18 11:52 Pulse Rate 75 05/02/18 12:37 Respiratory Rate 16 05/02/18 11:52 Blood Pressure 138/82 05/02/18 12:37 Pulse Oximetry 93 05/02/18 12:37 Respiratory Function: Airway Patent Cardiovascular Function: Regular Pulse EKG: Sinus Rhythm Mental Status: Alert and Oriented Pain Intensity: 6 Hydration: IV Infusing, Nausea Complications During Recover: None Apparent - Follow-Up Instructions Instructions: Per Surgeon
[2018-05-02] MEDS: APAP/ASA/Caffeine 1 TAB PO PRN (13:29)
--- NOTE | 2018-05-02 13:35 | Progress Note ---
- Date 05/02/18 Subjective: Patient is seen today in follow-up. She is postop and still sleepy. Her mother was present and reports she was told that surgery went well. Objective Vital signs: Temperature 97.9 F 05/02/18 11:52 Pulse Rate 75 05/02/18 12:37 Respiratory Rate 16 05/02/18 11:52 Blood Pressure 138/82 05/02/18 12:37 Pulse Oximetry 93 05/02/18 12:37 Height/Weight/BMI: Height 1.55 m Weight 103 kg - Constitutional Present: no acute distress, well nourished, well developed - Routine HEENT Exam Head: Present: normocephalic, atraumatic - Routine Respiratory Exam Present: CTA bilaterally. Absent: wheezes - Routine Cardiovascular Exam Present: RRR, no murmur - Routine Abdominal Exam Present: soft, non distended Comments: Larger dressing over umbilicus and steristrips/bandaids over other incision areas - Routine Extremities Exam Present: no edema, normal capillary refill - Routine Skin Exam Present: dry, warm - Routine Neurological Exam Absent: alert (sleeping) - Routine Lymphatic Exam Lymphatic: Absent: adenopathy - Routine Psychiatric Exam Present: unable to assess Results - Labs CBC & Chem 7: 05/02/18 05:35 05/02/18 05:35 Labs: Laboratory Tests 04/29/18 04/30/18 05/01/18 07:51 04:32 04:00 Lipase 49997 H D 2651 H 316 H D 05/02/18 05:35 Lipase 238 Laboratory Tests 05/01/18 05/02/18 04:00 05:35 AST 64 H D 63 H ALT 263 H 214 H Assessment and Plan (1) Gallstone pancreatitis Current visit: Yes Status: Acute Assessment and Plan: Assessment Gallstone pancreatitis - s/p multiport robotic laparoscopic cholecystectomy 05/[address] Nelson Abnormal liver enzymes - improving Cholelithiasis Mild intermittent asthma , s/p 03/29/18 Heart murmur Obesity, BMI >40 Plan: Patient underwent multiport robotic laparoscopic cholecystectomy this morning by Dr. Nelson. Lipase has normalized. AST and ALT continue to improve. DVT Prophylaxis: Lovenox Resuscitation Status: Full Code - Physician Narrative Physician: Sakina Lutz MD Narrative: Date: 05/02/18 Time: 2129 I have independently evaluated and examined this patient. I reviewed the chart, the patient's history, and the MACHINE BANDER AND CELLOPHANER/PA's documented findings as above. We discussed and formulated the assessment and plan as above with additions as below: Guerline was seen postoperatively at which time she complained of pain in her left shoulder and mild nausea although she was tolerating liquids and had ordered solid food at dinner time. She described mild generalized abdominal discomfort. Abdomen soft, mildly distended, sparse bowel sounds Labs noted, minimal persistent elevation in transaminases, lipase normal. Status post laparoscopic cholecystectomy-hopefully home tomorrow. Hospital Course Summary Disclaimer: The visit summary below is not to be considered part of the above Progress Note. Hospital Course: 04/29/18 Agree with symptomatic management of gallstone pancreatitis, per attending. Dilaudid and Zofran have been helpful in managing her pain and nausea. Diet: NPO. Continue IVF. UA was done in the ED - negative for UTI but did show 2+ bilirubin. Trend LFTs; lipase; WBC. Albuterol PRN. Encourage IS and activity as tolerated. 04/30/18 Likely/chemically improving, tolerating ice chips. Course strongly suggests transient obstruction of common duct no longer present based on resolving enzymes and MR imaging revealing ductal dilatation but no filling defect. Recurrent biliary colic in the recent past and during late . Hopefully we'll be able to proceed to laparoscopic cholecystectomy in the next 1 -2 days. 05/01/18 Continues to improve. Tolerating ice chips. Dr. Nelson planning on surgery as soon as labs normalize. LFT's and lipase continue to trend down. Potassium just slightly low - has KCl running in IVF's. Monitor. 05/02/18 Patient underwent multiport robotic laparoscopic cholecystectomy this morning by Dr. Nelson. Lipase has normalized. AST and ALT continue to improve.
[2018-05-02] MEDS: Oxycodone *IR* 5 MG TABLET PO PRN ×3 (14:52→20:12)
[2018-05-02] MEDS: POTASSIUM CHLORIDE INJ 20 MEQ, POTASSIUM PHOSPHATE (mEq) 20 MEQ in D5NS 1,000 ML IV SCH ×2 (14:53→18:50)
--- NOTE | 2018-05-02 15:13 | Operative Note ---
DATE: 05/02/2018 PREOPERATIVE DIAGNOSES 1. Chronic cholecystitis and cholelithiasis. 2. Acute gallstone pancreatitis. POSTOPERATIVE DIAGNOSES 1. Chronic cholecystitis and cholelithiasis. 2. Acute gallstone pancreatitis. OPERATION: Multiport robotic laparoscopic cholecystectomy. SURGEON: Dr. Nelson ANESTHESIA: General. ASA CLASS: 3 FINDINGS The gallbladder appeared be chronically inflamed. The gallbladder contained multiple small gallstones. The liver appeared normal. DESCRIPTION OF OPERATION The patient did have injectable indocyanine green dye administered intravenously preoperatively. The patient was placed in supine position on the operating table. General anesthesia was satisfactorily induced. The abdomen was prepped and draped in routine sterile fashion. Bupivacaine 0.25% without epinephrine was infiltrated into the skin and underlying tissue at an infraumbilical incision site. An infraumbilical incision was made. A Veress needle was inserted into the peritoneal cavity through the incision. Pneumoperitoneum was established with carbon dioxide. The Veress needle was removed. A 12-mm camera port was placed at the infraumbilical incision. A 12 mm 30 degree da Raymon laparoscope was inserted at the infraumbilical port. The patient was placed in reverse Trendelenburg position. The right side of the table was tilted up. The skin and underlying structures at the abdominal wall were infiltrated with bupivacaine at a port site at the left upper quadrant of the abdomen at the midclavicular line. An incision was made at this site and an 8 mm da Raymon instrument port was placed at this incision. The skin and underlying abdominal wall structures were infiltrated with bupivacaine at another incision site at the left side of the abdomen. An incision was made at this site and an 8 mm Air Seal microbiology lab assistant port was placed at this incision. The skin and underlying abdominal wall structures were infiltrated with bupivacaine at a port site at the right upper quadrant of the abdomen. An incision was made at this site and an 8 mm da Raymon instrument port was placed at this incision. The skin and underlying abdominal wall structures were infiltrated with bupivacaine at another port site at a more lateral location at the right side of the abdomen. An incision was made at this site and another 8 mm da Raymon instrument port was placed at this incision. The da Raymon robotic system was brought up to the operating table. The da Raymon robotic system was docked to the camera port and instrument ports. A da Raymon 12 mm 30 degree laparoscope was inserted at the camera port. A [place] bipolar forceps was inserted at the 8 mm instrument port at the left upper quadrant of the abdomen associated with instrument arm #1. A Cadiere forceps was inserted at the 8 mm instrument port at the right upper quadrant of the abdomen associated with instrument arm #2. A ProGrasp forceps was inserted at the 8 mm instrument port at the right lateral location of the abdomen associated with instrument arm #3. These instruments were all placed into a position adjacent to the gallbladder. The surgeon then went from the patient's side at the operating table to the surgeon console. The ProGrasp forceps with instrument arm #3 was used to grasp the fundus of the gallbladder and elevate the gallbladder and reflect the liver up superiorly towards the right diaphragm. The infundibulum of the gallbladder was grasped with the Cadiere forceps with instrument arm #2. Dissection was performed at the hepatocystic triangle. The cystic duct was dissected out and identified. The cystic artery was dissected out and identified. The cystic duct was demonstrated with Firefly fluorescence imaging at this time. Dissection was performed at the hepatocystic triangle until the only two structures remaining were the cystic duct and the cystic artery. A critical view of safety was achieved at this time. The hepatocystic triangle was cleared of all fatty and fibrinous tissue until the only two structures remaining were the cystic duct and the cystic artery. The infundibular end of the gallbladder was also dissected out of the gallbladder bed to some extent at this time. A critical view of safety was achieved. Three of the Hem-o-jim clips were then applied to the cystic duct at the junction of the cystic duct and the gallbladder. The cystic duct was divided between the Hem-o-jim clips with the curved dissecting scissors. Two of the Hem-o-jim clips were left in place on the cystic duct stump. Two of the Hem-o-jim clips were applied to the cystic artery. The cystic artery was divided between the Hem-o-jim clips with the monopolar curved scissors. The monopolar curved scissors was then used to dissect the gallbladder out of the gallbladder bed. Tissue was coagulated with the monopolar curved scissors as the gallbladder was being dissected out of the gallbladder bed to maintain hemostasis. The gallbladder was completely dissected out of the gallbladder bed. The gallbladder was placed in a position in the peritoneal cavity along the margin of the liver. The instruments were removed from the instrument ports. The da Raymon laparoscope was removed from the camera port. The da Raymon robotic system was undocked from the ports. The surgeon left the surgeon console and returned back to the side of the patient at the operating table. The da Raymon 8.5 mm 30 degree laparoscope was inserted at one of the right-sided da Raymon instrument ports. The specimen retrieval pouch was inserted at the camera port. The gallbladder was placed in the specimen retrieval pouch. The specimen retrieval pouch containing the gallbladder was brought out through the infraumbilical incision. The gallbladder was submitted as a specimen for study by the pathologist. The instrument ports were all removed. Carbon dioxide was removed from the peritoneal cavity by desufflation. The fascial layer of the infraumbilical incision was closed with a series of simple interrupted stitches using 0-Vicryl suture. The skin margins were then closed at all of the incisions with subcuticular stitches using 4-0 Vicryl suture. Benzoin and 1/4-inch wide Steri- Strips were applied to the incisions. Band-Aids were applied to the incisions. The patient tolerated the operation well. The patient was transferred from the operating room to the recovery room in satisfactory condition. WILLIAM
[2018-05-02] MEDS: ONDANSETRON 4 MG/2 ML INJECTION IVP PRN (16:21)
[2018-05-02 23:25] VITALS: O2SAT 96
[2018-05-03] MEDS: Oxycodone *IR* 5 MG TABLET PO PRN ×2 (00:58→09:13)
[2018-05-03] MEDS: POTASSIUM CHLORIDE INJ 20 MEQ, POTASSIUM PHOSPHATE (mEq) 20 MEQ in D5NS 1,000 ML IV SCH ×2 (02:12→07:50)
[2018-05-03 07:46] VITALS: BP 145/93; PULSE 82; RESP 16; TEMP 98.4
[2018-05-03] MEDS ORDERED: FAMOTIDINE 20 MG TABLET PO SCH (09:00)
--- NOTE | 2018-05-03 11:09 | Operative Note ---
DATE 05/03/2018 POSTOP DAY #1 HISTORY The patient is doing well. She is tolerating her diet. She has good pain control with oral analgesics. She is up ambulating. She is doing well overall. PHYSICAL EXAMINATION VITAL SIGNS: Temperature is 98.4 degrees Fahrenheit oral. Pulse is 82. Respiratory rate is 16. Blood pressure is 145/93. Oxygen saturation is 96% on room air. ABDOMEN: All the abdominal incisions look good. LABORATORY DATA Serum sodium is 145. Serum potassium is 3.6. Serum chloride is 111. Serum creatinine is 0.5. Serum lipase is 172. Total bilirubin is 0.5. AST is 77. ALT is 178. Alkaline phosphatase is 114. IMPRESSION 1. Doing well following multiport robotic laparoscopic cholecystectomy on 05/02. 2. Resolution of mild hypokalemia. PLAN Dismiss patient from [facility] today. DISCHARGE MEDICATIONS 1. I did give the patient a written prescription for oxycodone 5 mg one tablet p.o. every 4 hours p.r.n. pain (dispense 40, no refills). 2. I did give the patient a prescription for Zofran 4 mg one p.o. every 6 hours p.r.n. nausea (dispense 25 - refill x1). 3. Ibuprofen 200 mg 2-4 tablets p.o. every 6 hours p.r.n. pain. 4. Tylenol 325 mg 1-2 tablets p.o. every 5 hours p.r.n. pain. MTDD
--- NOTE | 2018-05-03 16:17 | Progress Note ---
- Date 05/03/18 Subjective: Patient seen this am sitting in bed. States Dr Nelson says she can go home. She had a good night. Pain is controlled. Pain in shoulders is better. Breathing fine. No n/v this am. Objective Vital signs: Temperature 98.4 F 05/03/18 07:45 Pulse Rate 82 05/03/18 07:45 Respiratory Rate 16 05/03/18 07:45 Blood Pressure 145/93 H 05/03/18 07:45 Pulse Oximetry 96 05/03/18 07:45 Height/Weight/BMI: Height 1.55 m Weight 101.2 kg - Constitutional Present: no acute distress, well nourished, well developed - Routine HEENT Exam Head: Present: normocephalic, atraumatic - Routine Respiratory Exam Present: CTA bilaterally. Absent: wheezes - Routine Cardiovascular Exam Present: RRR, no murmur - Routine Abdominal Exam Present: soft, tenderness (Diffuse - mild. Most prominent LUQ), non distended Comments: surgical wounds intact with no infection or drainage. - Routine Extremities Exam Present: no edema, normal capillary refill - Routine Skin Exam Present: dry, warm - Routine Neurological Exam Present: alert, oriented X3 - Routine Lymphatic Exam Lymphatic: Absent: adenopathy - Routine Psychiatric Exam Present: normal affect, cooperative Results - Labs CBC & Chem 7: 05/02/18 05:35 05/03/18 04:41 Assessment and Plan (1) Gallstone pancreatitis Status: Acute Assessment and Plan: Assessment Gallstone pancreatitis - s/p multiport robotic laparoscopic cholecystectomy 05/[address] Nelson Abnormal liver enzymes - improving Cholelithiasis Mild intermittent asthma , s/p 03/29/18 Heart murmur Obesity, BMI >40 Plan: DC home per Dr Nelson today. Doing well. She'll f-u with him in 2 wks. DC instructions per Dr. Nelson. Lipase normal. Liver enzymes improving. - Physician Narrative Narrative: Date: 05/03/18 Time: 1613 Hospital Course Summary Disclaimer: The visit summary below is not to be considered part of the above Progress Note. Hospital Course: 04/29/18 Agree with symptomatic management of gallstone pancreatitis, per attending. Dilaudid and Zofran have been helpful in managing her pain and nausea. Diet: NPO. Continue IVF. UA was done in the ED - negative for UTI but did show 2+ bilirubin. Trend LFTs; lipase; WBC. Albuterol PRN. Encourage IS and activity as tolerated. 04/30/18 Likely/chemically improving, tolerating ice chips. Course strongly suggests transient obstruction of common duct no longer present based on resolving enzymes and MR imaging revealing ductal dilatation but no filling defect. Recurrent biliary colic in the recent past and during late . Hopefully we'll be able to proceed to laparoscopic cholecystectomy in the next 1 -2 days. 05/01/18 Continues to improve. Tolerating ice chips. Dr. Nelson planning on surgery as soon as labs normalize. LFT's and lipase continue to trend down. Potassium just slightly low - has KCl running in IVF's. Monitor. 05/02/18 Patient underwent multiport robotic laparoscopic cholecystectomy this morning by Dr. Nelson. Lipase has normalized. AST and ALT continue to improve. DC home per Dr Nelson today. Doing well. She'll f-u with him in 2 wks. DC instructions per Dr. Nelson. Lipase normal. Liver enzymes improving.
--- NOTE | 2018-05-05 16:08 | Discharge Summary ---
DISCHARGE DIAGNOSES 1. Acute gallstone pancreatitis. 2. Mild subacute cholecystitis. 3. Cholelithiasis. 4. 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 5. BMI of 40.9. 6. Mild hypokalemia. OPERATION Multiport robotic laparoscopic cholecystectomy on 05/02/2018. CONSULTANTS Dr. Sakina Lutz HOSPITAL COURSE This patient did come to [facility] emergency room on 04/29/2018. The patient did have acute upper abdominal pain and vomiting. The patient was found at [facility] emergency room to have a serum lipase of 22,832. Plasma lactate was 1.1. White blood cell count was 10,600. The differential for the white blood cell count showed 80% neutrophils and 4% bands. Total bilirubin was 3.3. AST was 367. ALT was 663. Alkaline phosphatase was 200. The patient was thought at this time to have acute gallstone pancreatitis. The patient was admitted to [facility] from the emergency room on the morning of 04/29/[address] Nelson. The patient was admitted for treatment of the acute gallstone pancreatitis. Details of history and physical examination findings at the time of admission to the hospital can be found in the dictated admission History and Physical Examination report in the chart. The patient was thought at the time of admission to the hospital to have acute gallstone pancreatitis. The patient was thought to have chronic cholecystitis and cholelithiasis. The patient was noted at the time of admission to the hospital to have a BMI of 40.9. The patient was kept n.p.o. for bowel rest when she was admitted to the hospital. The patient was given intravenous fluids. The patient was given analgesics and antiemetics for patient comfort. Deep venous thrombosis prophylaxis with sequential compression devices was started at the time of admission to the hospital. Dr. Nelson and Dr. Lutz had managed an episode of acute gallstone pancreatitis for this patient at a previous hospitalization in February 2018. Dr. Sakina Lutz was consulted for help with management of the patient at the time the patient was admitted to the hospital on 04/29/2018. On 04/30/2018, the patient was feeling better than she had felt at the time of admission to the hospital on the previous day. The patient was having less abdominal pain. The patient was afebrile. Vital signs were stable. The abdomen was soft. The abdomen was less tender at the upper abdomen than it had been on the previous day. The patient had most of her tenderness at the left upper quadrant. White blood cell count was 7900 with 1 band. Total bilirubin was 1. AST was 119. ALT was 352. Alkaline phosphatase was 138. Serum lipase was 2651. Serum potassium was 3.6. Serum creatinine was 0.5. It was thought that the patient had acute gallstone pancreatitis which was improving. Nonoperative treatment of the acute gallstone pancreatitis was continued with bowel rest, intravenous fluid administration, analgesics and antiemetics. Composition of intravenous fluids was changed. Use of sequential compression devices for deep venous thrombosis prophylaxis was continued. On 05/01/2018, the patient had more upper abdominal pain during the morning and needed to take some intravenous Dilaudid. The abdominal pain was less by the afternoon of 05/01/2018. The pain for the patient continued to be most prominent at the left upper quadrant. The patient was afebrile. The abdomen was soft. The patient did continue to have some left upper quadrant abdominal tenderness. This was mild tenderness at this time. White blood cell count was 7100 with no bands. Serum potassium was 3.5. Serum chloride was 113. Serum creatinine was 0.4. Total bilirubin was 0.6. AST was 64. ALT was 263. Alkaline phosphatase was 125. Serum lipase was 316. The mild hypokalemia was noted. Intravenous fluids were changed again at this time. The patient was thought to have acute gallstone pancreatitis which continued to improve clinically with nonoperative treatment. Plans were made to have the patient undergo multiport robotic laparoscopic cholecystectomy on the following morning. The white blood cell count was 5700 preoperatively on 05/02/2018. There were no bands. Serum potassium was 3.5 preoperatively. Serum creatinine was 0.5. Total bilirubin was 0.5. AST was 63. ALT was 214. Alkaline phosphatase was 108. Serum lipase was 238. These were all preoperative laboratory results on the morning of 05/02/2018. The patient did go the operating room on 2017. The patient did undergo multiport robotic laparoscopic cholecystectomy by Dr. Nelson on 05/02/2018. Details of operative findings can be found in the dictated operative report in the chart. There were no complications during the operation. The patient tolerated the operation well. The patient returned back to the surgical unit following the operation. On the first postoperative day, the patient was doing well. She was tolerating her diet. She had good pain control with oral analgesics. She was up ambulating. She was doing well overall. The patient was afebrile. Vital signs were all stable. All the abdominal incisions looked good. Serum sodium was 145. Serum potassium was 3.6. Serum chloride was 111. Serum creatinine was 0.5. Serum lipase was 172. Total bilirubin was 0.5. AST was 77. ALT was 178. Alkaline phosphatase was 114. There did appear to be resolution of the previous mild hypokalemia. The patient appeared to be doing well following the multiport robotic laparoscopic cholecystectomy operation on the previous day. The patient was dismissed from [facility] in stable condition on 08/2018. A pathology report was returned on the gallbladder specimen submitted at the time of the operation. One pathology report diagnosis was mild subacute cholecystitis. Another pathology report diagnosis was cholelithiasis. Another pathology report diagnosis was rather diffuse cholesterolosis with focal polyp formation. DISCHARGE MEDICATIONS 1. Oxycodone 5 mg one tablet p.o. every 4 hours p.r.n. pain (dispense 40 - no refills). 2. Ibuprofen 200 mg 2-4 tablets p.o. every 6 hours p.r.n. pain. 3. Tylenol 325 mg 1-2 tablets p.o. every 5 hours p.r.n. pain. 4. Zofran 4 mg one p.o. every 6 hours p.r.n. nausea (dispense 25 - refill x1). DISCHARGE DISPOSITION Followup office visit with Dr. Nelson one week following discharge from the hospital. WILLIAM
== END 2018-05-03 10:30 | disposition home or self-care (01) | DRG 769 ==
LOC: ED 07:23 → EDHOLD 07:23 → SRG 11:20
PROVIDERS: ADMIT Surgery; ATTEND Surgery